=== PATIENT | male | born 1965 | race Caucasian/White ===

== ENCOUNTER 2017-09-22 16:59 | Inpatient (IN) | payer MEDICAID, SELFPAY ==
[2017-09-22] VITALS (19 sets, daily range): BP systolic 74–129; BP diastolic 25–81; PULSE 50–81; RESP 14–20; TEMP 36.4–37; O2SAT 92–99; BMI 21.4
--- NOTE | 2017-09-22 17:06 | XR_ITS ---
XR chest portable HISTORY: ITS.REASON: chest pain ORDERING PHYSICIAN: Shahriar Ponce MD PATIENT AGE: 52 years COMPARISON: 06/24/2017 FINDINGS: The cardiomediastinal silhouette and pulmonary vascularity are within normal limits. There is overlying monitor artifact. There is some increased density in the right infrahilar region which may be related summation density from vascular crowding and ribs versus patchy infiltrate. Upright PA and lateral chest may be of further value. No acute bony abnormalities. IMPRESSION: 1. Possible infiltrate in right infrahilar region. 2. Artifact from overlying monitor device
--- NOTE | 2017-09-22 17:11 | HMH.EDCP ---
ED Disposition Clinical Impression: Acute inferior myocardial infarction Disposition: Admitted As Inpatient Condition on Discharge: Serious Time of Disposition: 17:40 - Critical Care Critical Care Time: Yes Attestation: On , the high probability of a clinically significant, sudden or life threatening deterioration of the following system(s) required my full and direct attention, intervention and personal management. The time I documented below is in addition to time spent performing reported procedures but includes the following listed in this critical care notation. Total Critical Care Time: 35 Vital system(s) involved:: Circulatory Failure My critical care processes included: Assessment & monitoring of V/S, Initial and Re-exams, Data Review/Interpretation, Coordinating Care, Medication Orders and management, Documentation Medical Decision Making - Medical Records Medical records reviewed: Yes: I reviewed the patient's medical records. Vital Signs: 09/22/17 17:00 09/22/17 17:28 Temperature 98.6 F 98.5 F Temperature Source Oral Oral Pulse Rate 79 Pulse Rate [Left Brachial] 78 Respiratory Rate 16 14 Blood Pressure 129/81 Blood Pressure Source Automatic Cuff Blood Pressure Position Sitting 02 Sat by Pulse Oximetry 99 Oxygen Delivery Method Room Air Room Air - Lab Data Lab results reviewed: Yes: I reviewed the patient's lab results. Lab Results 09/22/17 17:10: D-Dimer 385 09/22/17 17:10: B-Natriuretic Peptide 7 09/22/17 17:15: WBC 16.6 H, RBC 4.87, Hgb 15.1, Hct 46.4, MCV 95.2 H, MCH 31.1, MCHC 32.6, RDW 12.0, Plt Count 431 H, MPV 7.2 L, Neut % (Auto) 75.3, Lymph % (Auto) 17.6, [place] % (Auto) 5.8, Eos % (Auto) 1.1, Baso % (Auto) 0.3, Neut # (Auto) 12.5 H, Lymph # (Auto) 2.9, [place] # (Auto) 1.0, Eos # (Auto) 0.2, Baso # (Auto) 0.1, Total Counted 100, Neutrophils % (Manual) 74, Lymphocytes % (Manual) 17, Monocytes % (Manual) 8, Eosinophils % (Manual) 1, Platelet Estimate Slight increase, RBC Morphology Normal 09/22/17 17:15: Sodium 129 L, Potassium 4.3, Chloride 101, Carbon Dioxide 29, Anion Gap 3.3 L, BUN 11, Creatinine 1.02, Estimated Creat Clear 78, Estimated GFR 76, Est GFR ( Amer) 92, Glucose 132 H, Calcium 8.7, Total Bilirubin 0.1 L, AST 14 L, ALT 19, Alkaline Phosphatase 71, Total Creatine Kinase 76, CK-MB (CK-2) 0.7, CK-MB (CK-2) Rel Index 0.9, Troponin I 0.04, Total Protein 7.6, Albumin 4.1, Globulin 3.5 H, Albumin/Globulin Ratio 1.2, Amylase 44 09/22/17 17:15: Lipase 183 09/22/17 17:50: Activated Clotting Time 208 H* 09/22/17 18:05: Activated Clotting Time > 400 H* D Result diagrams: 09/25/17 08:23 09/25/17 08:23 Orders (Tests/Meds): ED MEDICATIONS Discontinued Medications Generic Name Dose Route Start Last Admin Trade Name Freq PRN Reason Stop Dose Admin Hydrocodone Bitart/Acetaminophen 2 tab 09/22/17 18:58 09/22/17 19:00 Bureau 5/325mg Tablet PO 09/22/17 18:59 2 tab ONCE ONE Administration Aspirin 325 mg 09/22/17 17:11 09/22/17 17:18 Aspirin 325mg Tablet PO 09/22/17 17:12 325 mg ONCE ONE Administration Aspirin 81 mg 09/23/17 09:00 09/25/17 09:14 Aspirin 81mg Enteric Coated Tablet PO 10/23/17 08:59 81 mg DAILY NOELLE Administration Atorvastatin Calcium 40 mg 09/22/17 21:00 09/24/17 20:55 Lipitor 40mg Tablet PO 10/22/17 20:59 40 mg HS NOELLE Administration Carvedilol 3.125 mg 09/23/17 21:00 09/25/17 09:14 Coreg 3.125mg Tablet PO 10/23/17 20:59 3.125 mg BID NOELLE Administration Diphenhydramine HCl 50 mg 09/22/17 18:37 09/22/17 18:43 Benadryl 50mg/1ml Vial IV 09/22/17 18:38 50 mg ONCE ONE Administration Fentanyl Citrate 50 mcg 09/22/17 18:37 Fentanyl 100mcg/2ml Vial IV 09/23/17 18:38 Q3MINP PRN Moderate to Severe Pain Fentanyl Citrate 25 mcg 09/22/17 18:37 09/22/17 18:46 Fentanyl 100mcg/2ml Vial IV 09/23/17 18:38 100 mcg Q3MINP PRN Administration Moderate to Severe Pain Flumaze
--- NOTE | 2017-09-22 17:19 | PC.NURSE ---
SPOKE WITH Michael WOOD, RN AND Nemesio INIGUEZ, RN TO NOTIFY THEM OF STEMI ALERT. DR. JAIN SPOKE WITH DR. VELAZCO AND HE IS ON HIS WAY. PURA SALINAS IS IN HOUSE AND SHE WAS NOTIFIED OF STEMI ALERT.
--- NOTE | 2017-09-22 17:24 | PC.NURSE ---
Nemesio INIGUEZ RN AT BEDSIDE.
[2017-09-22 17:25] LABS: Basophils # 0.1 K/mm3 (0-0.2); Basophils % 0.3 % (0.1-2.0); Eosinophils # 0.2 K/mm3 (0.0-0.4); Eosinophils % 1.1 % (0.1-12.0); Hematocrit 46.4 % (42.0-52.0); Hemoglobin 15.1 g/dL (14.1-18.0); Lymphocytes # 2.9 K/mm3 (0.7-4.5); Lymphocytes % 17.6 K/mm3 (10-50); Mean Corpuscular HGB Conc 32.6 g/dL (31.8-35.4); Mean Corpuscular Hemoglobin 31.1 pg (27.0-31.2); Mean Corpuscular Volume 95.2 fl (80-94); Mean Platelet Volume 7.2 fl (7.4-10.4); Monocytes % 5.8 % (1.7-9.3); Neutrophils # 12.5 K/mm3 (1.8-7.8); Neutrophils % 75.3 % (37.0-80.0); Platelet Count 431 K/mm3 (142-424); Red Blood Count 4.87 M/mm3 (4.60-6.20); White Blood Count 16.6 K/mm3 (4.8-10.8)
--- NOTE | 2017-09-22 17:25 | PC.NURSE ---
pt leaving for lab scientist
[2017-09-22 17:41] LABS: Lipase 183 u/L (73-393); MANUAL DIFFERENTIAL MANUAL DIFFERENTIAL (MANUAL DIFF)
[2017-09-22 17:48] LABS: Alanine Aminotransferase 19 U/L (12-78); Albumin Level 4.1 gm/dL (3.4-5.0); Albumin/Globulin Ratio 1.2 (1.1-1.8); Alkaline Phosphatase 71 U/L (46-116); Amylase 44 U/L (25-125); Anion Gap 3.3 mEq/L (5-15); Aspartate Amino Transferase 14 U/L (15-37); Bilirubin,Total 0.1 mg/dL (0.2-1.0); Blood Urea Nitrogen 11 mg/dL (7-18); CKMB Relative Index 0.9 U/L (0-4.0); Calcium 8.7 mg/dL (8.5-10.1); Carbon Dioxide 29 mmol/L (21.0-32.0); Chloride 101 mmol/L (98-107); Creatine Kinase 76 U/L (39-308); Creatine Kinase MB 0.7 mg/ml (0.0-3.6); Creatinine Clearance Estimated 78 mL/min (0-300); Creatinine,Serum 1.02 mg/dL (0.70-1.30); Estimated Glomerular Filt Rate 76 ml/min (>60); GFR (African American) 92 ML/MIN (>60); Globulin 3.5 gm/dl (1.3-3.2); Glucose 132 mg/dL (74-106); Potassium 4.3 mmoL/L (3.5-5.1); Sodium 129 mmol/L (136-145); Total Protein,Serum 7.6 gm/dL (6.4-8.2); Troponin I 0.04 ng/ml (0.00-0.06)
--- NOTE | 2017-09-22 17:48 | PC.NURSE ---
DR. VELAZCO ARRIVED AT BEDSIDE.
[2017-09-22 18:00] LABS: D-Dimer 385 (0-400)
--- NOTE | 2017-09-22 18:31 | IR_ITS ---
CARDIAC CATHETERIZATION DATE OF CATHETERIZATION:09/23/2017 4:52 PM PROCEDURES: 1. Left heart catheterization 2. Left ventriculogram 3. Selective coronary angiogram 4. Drug-eluting stent deployment to the mid dominant right coronary artery 5. Drug-eluting stent deployment to the proximal posterior lateral ventricular branch INDICATION FOR TEST: 1. Acute inferior ST elevation myocardial infarction 2. Coronary artery disease Informed consent was obtained prior to the procedure. COMPLICATIONS: None ESTIMATED BLOOD LOSS: Less than 10 ml. TECHNIQUE: One percent lidocaine used to anesthetize the right anterior aspect of the wrist. The right radial artery was accessed via the Seldinger technique. A 6 [place] sheath was placed in the right radial artery. 2.5 mg of verapamil, 800 mcg of nitroglycerin and 5000 U Heparin were given through the arterial sheath. An [employer] right guide catheter was used intubate the right coronary artery and a choice PT extra-support wire was used to push through the 100% occlusion. A 2 mm x 12 mm balloon was used to predilate the stenosis. Following this a 3 mm x 26 mm resolute [place] stent was deployed at 20 ryan reducing the severe stenosis to 0%. An additional 2.5 x 8 mm resolute [place] stent was placed in the posterior lateral ventricular branch and deployed at 18 ryan. SHAI 0 flow was present at the beginning the procedure with SHAI-3 flow present at the end of the procedure. 800 mcg of intracoronary nitroglycerin was administered. At the end of the procedure the ACT was measured out of range. The sheath was removed good hemostasis was achieved using TR banding patient transferred the postop holding area in stable condition ANGIOGRAPHIC RESULTS: 1. The left main artery normal 2. The left anterior descending artery is normal throughout 3. The circumflex artery is a large nondominant vessel and normal 4. The right coronary artery is a dominant vessel with stents in the mid segment which have 50% concentric in-stent restenosis. The vessel is then occluded distal to the RV marginal branch. The posterior lateral branch has a proximal concentric 90% stenosis 5. The GOODWIN ventriculogram reveals normal ejection fraction estimated at 60% 6. The left ventricular end-diastolic pressure 20 mmHg IMPRESSION: 1. Acute ST elevation myocardial infarction involving the right coronary artery producing an inferior myocardial infarction 2. Successful stenting of the mid dominant right coronary artery 100% occlusion reduced to 0% with 1 drug-eluting stent 3. Severe stenosis in the proximal posterior lateral ventricular branch with successful stenting reducing the 90% stenosis to 0% 4. Normal ejection fraction 5. Mildly elevated LVEDP PLAN: 1. Patient requires dual antiplatelet therapy for one year 2. LDL less than 55. Lipitor 40 mg a day will be started 3. Lisinopril 2.5 mg by mouth twice a day will be started in order to prevent left ventricular remodeling 4. Once patient has better blood pressure I would like to start him on carvedilol initially a 3.125 mg by mouth twice a day with plans to uptitrate as blood pressure and heart rate tolerate 5. Cardiac rehabilitation 6. Avoidance of tobacco products
[2017-09-22 18:43] LABS: CATHL Activated Clotting Time > 400 SEC (74-125)
[2017-09-22 18:43] LABS: CATHL Activated Clotting Time 208 SEC (74-125)
[2017-09-22 18:47] LABS: Eosinophils % 1 % (0-3); Lymphocytes % 17 % (10-50); Monocytes % 8 % (2-9); Neutrophils % 74 % (42-76); RBC Morphology Normal; Total Cells Counted 100
[2017-09-22 18:48] LABS: Platelet Estimate Slight Increase
--- NOTE | 2017-09-22 20:39 | HMH.ACPN2 ---
Internal Medicine - PN: Subj *Date: 09/22/17 *Time: 20:39 Interval history: This 52-year-old white male presented to the emergency room at [facility] with chest pain. He states that after taking a shower he developed chest pain with radiation into the jaw. He has known coronary disease with a history of 2 stents placed when he was in his 30s. The stents were placed by Dr. Crespo in [place]. He was admitted today from the emergency room and taken directly to cardiac catheterization lab. Dr. Jerome Mcclure performed catheterization and placed 2 stents in the right coronary artery. The patient is stable at this time in the intensive care unit. He does complain of some chest discomfort still. As stated he has a history of coronary artery disease and he is a smoker. He has a family history of coronary artery disease. Exam Vital signs and Labs for Last 24 Hours: Temp Pulse Resp BP Pulse Ox 98.5 F 77 16 106/67 92 L 09/22/17 17:28 09/22/17 19:20 09/22/17 19:20 09/22/17 19:20 09/22/17 19:20
--- NOTE | 2017-09-22 20:49 | HMH.HP ---
*Admission Date: 09/22/17 *Chief complaint: Chest pain *History of present illness: This 52-year-old white male presented in the emergency room at [facility] with complaints of chest pain. He had taken a shower and experienced chest pain with radiation to the jaw. He has known coronary artery disease having had 2 stents placed when he was in his 30s. He is a smoker. He has a family history of coronary artery disease. The patient was admitted from the emergency room and taken to the cardiac catheterization lab. Dr. Jerome Mcclure performed cardiac catheterization placing 2 stents in the right coronary artery. Also significant in the patient's history is that he is a chronic pain patient. He has been followed in the pain clinic at [facility] and has received lumbar epidural steroid injections for neck and low back pain. Dates of those injections include September 21, 2016 and December 03, 2016 and February 15, 2017. He also was hospitalized in October 2016 with an abscess of the left upper extremity. This was drained by Dr. Ledesma [facility] History Medical History: Reports:: Anxiety, Atherosclerotic Heart Disease, Chronic Obstructive Pulmonary Disease (COPD), Coronary Artery Disease, Depression, Gastroesophageal Reflux Disease(GERD), MRSA (Left upper extremity October 2016) Denies:: Cancer, Diabetes Mellitus Type 1, Diabetes Mellitus Type 2 Other Medical History: Reports: Arthritis Other Surgeries: Yes: Other (Abscess of the left upper extremity Dr. 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 Not current.) *Family Hx:: Coronary Artery Disease (Father with heart disease) Comment: He has a 38-year-old daughter Review of Systems - Constitutional Comments: Chest pain - Eyes Denies change in vision - ENT Comments: Chronic neck pain. Pain with radiation into the jaw on this presentation. - *Cardiovascular Reports chest pain, Reports excessive sweating, Reports shortness of breath, Reports radiating jaw, neck or arm pain - *Respiratory Reports chest congestion, Reports shortness of breath - *Gastrointestinal Denies abdominal pain - *Genitourinary Denies difficulty urinating - *Musculoskeletal Reports back pain - Integumentary/Breasts Denies wounds - *Neurologic Denies behavioral changes, Denies localized weakness - Psychiatric Reports depression (Past history) - Endocrine Denies increased urination - Hematologic/Lymphatic Denies easy bleeding - Allergic/Immunologic Comments: No known allergies. Meds Home Medications Medication Instructions Recorded Confirmed Type Atenolol [Atenolol 50mg Tab] 50 mg PO DAILY 09/22/17 09/22/17 History Allergies Allergy/AdvReac Type Severity Reaction Status Date / Time No Known Drug Allergies Allergy Unknown -- Verified 09/22/17 17:10 Exam Vital signs and Labs for Last 24 Hours: Temp Pulse Resp BP Pulse Ox 98.5 F 77 16 106/67 92 L 09/22/17 17:28 09/22/17 19:20 09/22/17 19:20 09/22/17 19:20 09/22/17 19:20 - Constitutional Comments: He is lying in bed. He is in no acute distress. He does state that he has some residual chest pain in the center of the chest. - *Routine HEENT Exam Head: Present: normocephalic, atraumatic Eye: Present: PERRL ENT: Present: mucous memb
--- NOTE | 2017-09-22 20:52 | P.HP_ITS ---
*Admission Date: 09/22/17 *Chief complaint: Chest pain *History of present illness: This 52-year-old white male presented in the emergency room at [facility] with complaints of chest pain. He had taken a shower and experienced chest pain with radiation to the jaw. He has known coronary artery disease having had 2 stents placed when he was in his 30s. He is a smoker. He has a family history of coronary artery disease. The patient was admitted from the emergency room and taken to the cardiac catheterization lab. Dr. Jerome Mcclure performed cardiac catheterization placing 2 stents in the right coronary artery. Also significant in the patient's history is that he is a chronic pain patient. He has been followed in the pain clinic at [facility] and has received lumbar epidural steroid injections for neck and low back pain. Dates of those injections include September 21, 2016 and December 03, 2016 and February 15, 2017. He also was hospitalized in October 2016 with an abscess of the left upper extremity. This was drained by Dr. Ledesma [facility] History Medical History: Reports:: Anxiety, Atherosclerotic Heart Disease, Chronic Obstructive Pulmonary Disease (COPD), Coronary Artery Disease, Depression, Gastroesophageal Reflux Disease(GERD), MRSA (Left upper extremity October 2016) Denies:: Cancer, Diabetes Mellitus Type 1, Diabetes Mellitus Type 2 Other Medical History: Reports: Arthritis Other Surgeries: Yes: Other (Abscess of the left upper extremity Dr. 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 Not current.) *Family Hx:: Coronary Artery Disease (Father with heart disease) Comment: He has a 38-year-old daughter Review of Systems - Constitutional Comments: Chest pain - Eyes Denies change in vision - ENT Comments: Chronic neck pain. Pain with radiation into the jaw on this presentation. - *Cardiovascular Reports chest pain, Reports excessive sweating, Reports shortness of breath, Reports radiating jaw, neck or arm pain - *Respiratory Reports chest congestion, Reports shortness of breath - *Gastrointestinal Denies abdominal pain - *Genitourinary Denies difficulty urinating - *Musculoskeletal Reports back pain - Integumentary/Breasts Denies wounds - *Neurologic Denies behavioral changes, Denies localized weakness - Psychiatric Reports depression (Past history) - Endocrine Denies increased urination - Hematologic/Lymphatic Denies easy bleeding - Allergic/Immunologic Comments: No known allergies. Meds Home Medications Medication Instructions Recorded Confirmed Type Atenolol [Atenolol 50mg Tab] 50 mg PO DAILY 09/22/17 09/22/17 History Allergies Allergy/AdvReac Type Severity Reaction Status Date / Time No Known Drug Allergies Allergy Unknown -- Veri
[2017-09-23] VITALS (17 sets, daily range): BP systolic 92–125; BP diastolic 47–90; PULSE 60–84; RESP 14–22; TEMP 36.4–37.2; O2SAT 95–98
[2017-09-23 02:40] LABS: POC Glucose,Bedside 130 mg/dL
--- NOTE | 2017-09-23 05:30 | PC.NURSE ---
PT RESTING IN BED. (R) RADIAL CATH SITE. DRESSING, 2X2 WITH TEGADERM C/D/I. TRACELET WAS REMOVED WITHOUT ANY DIFFICULTIES. NO HEMATOMA NOTED. PT REMAINS NSR WITH PVC'S. HE STATES THAT HE NO LONGER IS HAVING CHEST PAIN. HE HAS C/O SO ANXIETY THIS AM. IT WAS ALSO NOTED THAT PT STATED THAT HE TAKES ATENOLOL 50 MG PT DAILY. MD IS AWARE. NO OTHER COCNERNS NOTED AT THIS TIME. WILL CONTINUE TO MONITOR.
[2017-09-23 06:32] LABS: Basophils % 0.3 % (0.1-2.0); Lymphocytes # 3.2 K/mm3 (0.7-4.5); Monocytes # 0.8 K/mm3 (0.1-1.0)
[2017-09-23 06:37] LABS: Eosinophils # 0.2 K/mm3 (0.0-0.4); Eosinophils % 1.3 % (0.1-12.0); Hematocrit 38.4 % (42.0-52.0); Hemoglobin 12.3 g/dL (14.1-18.0); Lymphocytes % 26.2 K/mm3 (10-50); Mean Corpuscular HGB Conc 32.2 g/dL (31.8-35.4); Mean Corpuscular Hemoglobin 30.3 pg (27.0-31.2); Mean Corpuscular Volume 94.1 fl (80-94); Mean Platelet Volume 6.7 fl (7.4-10.4); Monocytes % 6.1 % (1.7-9.3); Neutrophils # 8.2 K/mm3 (1.8-7.8); Platelet Count 337 K/mm3 (142-424); Red Blood Count 4.08 M/mm3 (4.60-6.20); White Blood Count 12.3 K/mm3 (4.8-10.8)
[2017-09-23 06:46] LABS: Alanine Aminotransferase 24 U/L (12-78); Albumin/Globulin Ratio 1.1 (1.1-1.8); Alkaline Phosphatase 56 U/L (46-116); Anion Gap 10.8 mEq/L (5-15); Aspartate Amino Transferase 96 U/L (15-37); Bilirubin,Total 0.3 mg/dL (0.2-1.0); Blood Urea Nitrogen 7 mg/dL (7-18); Calcium 8.2 mg/dL (8.5-10.1); Carbon Dioxide 27 mmol/L (21.0-32.0); Chloride 107 mmol/L (98-107); Creatinine Clearance Estimated 89 mL/min (0-300); Creatinine,Serum 0.89 mg/dL (0.70-1.30); Estimated Glomerular Filt Rate 89 ml/min (>60); GFR (African American) 108 ML/MIN (>60); Globulin 2.7 gm/dl (1.3-3.2); Glucose 93 mg/dL (74-106); Potassium 3.8 mmoL/L (3.5-5.1); Sodium 141 mmol/L (136-145); Total Protein,Serum 5.7 gm/dL (6.4-8.2)
[2017-09-23 07:30] LABS: Creatine Kinase 901 U/L (39-308)
--- NOTE | 2017-09-23 07:43 | P.CONPHA_ITS ---
[facility] Pharm[facility] VTE Monitoring - Patient Demographics Admission date: 09/22/17 Report Date: 09/23/17 Time: 07:43 Allergies/Adverse Reactions: Patient Allergies No Known Drug Allergies Allergy (Unknown, Verified 09/22/17 17:10) -- Height: 1.75 m Weight: 65.317 kg Patient Problems: Current Active Problems Acute inferior myocardial infarction (Acute) Chest pain due to myocardial ischemia (Acute) Coronary artery disease (Acute) Chronic back pain (Acute) Tobacco abuse (Acute) History of ETOH abuse (Acute) - VTE Risk Labs: VTE Related Lab Results Hgb 12.3 g/dL (14.1-18.0) L D 09/23/17 06:00 Hct 38.4 % (42.0-52.0) L 09/23/17 06:00 Plt Count 337 K/mm3 (142-424) 09/23/17 06:00 BUN 7 mg/dL (7-18) D 09/23/17 06:00 Creatinine 0.89 mg/dL (0.70-1.30) 09/23/17 06:00 Estimated Creat Clear 89 mL/min (0-300) 09/23/17 06:00 Was VTE Risk Assessment Performed: Yes VTE Score: 5 VTE Risk Level: Low Risk Clinical Trial Participant: No - Prophylaxis VTE Prophylaxis Ordered?: Yes Types of VTE Prophylaxis: TEDS Knee High
[2017-09-23 07:46] LABS: CKMB Relative Index 13.5 U/L (0-4.0)
[2017-09-23 07:47] LABS: Creatine Kinase MB 121.3 mg/ml (0.0-3.6); Troponin I 40.36 ng/ml (0.00-0.06)
--- NOTE | 2017-09-23 08:32 | HMH.ACPN2 ---
Internal Medicine - PN: Subj *Date: 09/23/17 *Time: 08:32 Interval history: Pt states he feels a little better today. He denies any CP at this time. He does have a COOK and is asking for ASA. Cardiology has not seen patient yet today. Exam Vital signs and Labs for Last 24 Hours: Temp Pulse Resp BP Pulse Ox 97.9 F 70 14 106/78 96 09/23/17 04:00 09/23/17 08:20 09/23/17 05:00 09/23/17 05:00 09/23/17 08:00 Laboratory Results - last 24 hr 09/23/17 02:33: POC Glucose 130 09/23/17 06:00: WBC 12.3 H D, RBC 4.08 L, Hgb 12.3 L D, Hct 38.4 L, MCV 94.1 H, MCH 30.3, MCHC 32.2, RDW 12.0, Plt Count 337, MPV 6.7 L, Neut % (Auto) 66.0, Lymph % (Auto) 26.2, [place] % (Auto) 6.1, Eos % (Auto) 1.3, Baso % (Auto) 0.3, Neut # (Auto) 8.2 H, Lymph # (Auto) 3.2, [place] # (Auto) 0.8, Eos # (Auto) 0.2, Baso # (Auto) 0.0 09/23/17 06:00: Sodium 141, Potassium 3.8, Chloride 107, Carbon Dioxide 27, Anion Gap 10.8, BUN 7 D, Creatinine 0.89, Estimated Creat Clear 89, Estimated GFR 89, Est GFR ( Amer) 108, Glucose 93 D, Calcium 8.2 L, Total Bilirubin 0.3, AST 96 H D, ALT 24 D, Alkaline Phosphatase 56, Total Protein 5.7 L, Albumin 3.0 L D, Globulin 2.7, Albumin/Globulin Ratio 1.1 09/23/17 06:00: Total Creatine Kinase 901 H* D, CK-MB (CK-2) 121.3 H*, CK-MB (CK-2) Rel Index 13.5 H*, Troponin I 40.36 H I & O for Last 24 hours: Intake & Output 09/20/17 09/21/17 09/22/17 09/23/17 11:59 11:59 11:59 11:59 Output Total 600 / 600 Balance -600 / -600 Weight 144 lb - Constitutional no acute distress - *Routine Respiratory Exam Present: CTA bilaterally - *Routine Cardiovascular Exam Present: RRR - *Routine Abdominal Exam Present: soft, normoactive bowel sounds. Absent: tenderness - *Routine Extremities Exam Absent: edema Assessment and Plan (1) Acute inferior myocardial infarction Current visit: Yes Status: Acute Category: Medical Code(s): I21.19 - ST elevation (STEMI) myocardial infarction involving other coronary artery of inferior wall (2) Chest pain due to myocardial ischemia Current visit: Yes Status: Acute Category: Medical Code(s): I20.9 - Angina pectoris, unspecified (3) Chronic back pain Current visit: Yes Status: Acute Category: Medical Code(s): M54.9 - Dorsalgia, unspecified; G89.29 - Other chronic pain (4) Coronary artery disease Current visit: Yes Status: Acute Category: Medical Code(s): I25.10 - Atherosclerotic heart disease of [place] coronary artery without angina pectoris (5) History of ETOH abuse Current visit: Yes Status: Acute Category: Medical Code(s): Z87.898 - Personal history of other specified conditions (6) Tobacco abuse Current visit: Yes Status: Acute Category: Medical Code(s): Z72.0 - Tobacco use - Assessment and plan all Dx Assessment and Plan for all problems:: Cardiology to follow, patient will get an ASA for his COOK today.
--- NOTE | 2017-09-23 11:19 | PC.NURSE ---
Pt was noted to have v-tach, strip printed, MD Rios notified and reviewed at 0945. Will continue to monitor
--- NOTE | 2017-09-23 20:26 | PC.NURSE ---
dr arzate called rn and stated that pt needed to be on beta ravi. ordered coreg 3.125 bid
[2017-09-24] VITALS (14 sets, daily range): BP systolic 96–137; BP diastolic 64–86; PULSE 58–100; RESP 14–22; TEMP 36.1–37.1; O2SAT 94–98
--- NOTE | 2017-09-24 00:42 | PC.NURSE ---
LATE ENTRY- WHEN ATTEMPTNG TO UNDO PT'S SRNA CHECK FOR TIME @ 00:27. HIT WRONG BUTTON. REASON FOR UNDOING WAS SUPPOSE TO READ WRONG TIME . HIT BENITATON BY ACCIDENT.
--- NOTE | 2017-09-24 05:55 | PC.NURSE ---
NO ACUTE CHANGES NOTED. PT HAS RESTED BETTER TONIGHT. HE HAS BEEN LESS ANXIOUS. (R) RADIAL CATH SITE , DRESSING C/D/I. NO HEMATOMA NOTED. PT HAS AMBULATED IN ROOM WITHOUT DIFFICULTY. VSS. PT REMAINS NSR ON TELEMETRY WITH OCCASIONAL PVC'S. SOME EPISODES OF BRADYCARDIA. NO OTHER COCERNS NOTED AT THIS TIME. WILL CONTINUE TO MONITOR.
--- NOTE | 2017-09-24 06:09 | PC.NURSE ---
pt refused a bath & bed change. nurse notified
--- NOTE | 2017-09-24 07:54 | PC.NURSE ---
REPORT HANDOFF TO Harini PULIDO
[2017-09-24 08:12] LABS: Cholesterol 198 mg/dL (140-200); HDL Cholesterol 33 mg/dL (27-67); LDL Cholesterol 146 mg/dL (0-130); Triglycerides 95 mg/dL (30-200); VLDL Cholesterol 19 mg/dL (0-40)
--- NOTE | 2017-09-24 09:00 | P.PN_ITS ---
Internal Medicine - PN: Subj *Date: 09/24/17 *Time: 08:57 Interval history: Patient states he is feeling better this morning. He denies any chest pain. He slept well and ate well this morning. He states he was given lorazepam last night for anxiety and he would like another one this morning. Exam Vital signs and Labs for Last 24 Hours: Temp Pulse Resp BP Pulse Ox 98.7 F 63 16 126/76 96 09/24/17 04:00 09/24/17 06:00 09/24/17 06:00 09/24/17 06:00 09/24/17 06:00 Laboratory Results - last 24 hr 09/24/17 07:00: Triglycerides 95, Cholesterol 198, LDL Cholesterol 146 H, VLDL Cholesterol 19, HDL Cholesterol 33, Cholesterol/HDL Ratio 6.0 H I & O for Last 24 hours: Intake & Output 09/21/17 09/22/17 09/23/17 09/24/17 11:59 11:59 11:59 11:59 Intake Total 240 / 240 240 / 240 Output Total 600 / 600 1850 / 1850 Balance -360 / -360 -1610 / -1610 Weight 144 lb 144 lb - Constitutional no acute distress - *Routine Respiratory Exam Present: CTA bilaterally - *Routine Cardiovascular Exam Present: RRR - *Routine Abdominal Exam Present: soft, normoactive bowel sounds. Absent: tenderness - *Routine Extremities Exam Absent: edema Assessment and Plan (1) Acute inferior myocardial infarction Current visit: Yes Status: Acute Category: Medical Code(s): I21.19 - ST elevation (STEMI) myocardial infarction involving other coronary artery of inferior wall (2) Chest pain due to myocardial ischemia Current visit: Yes Status: Acute Category: Medical Code(s): I20.9 - Angina pectoris, unspecified (3) Chronic back pain Current visit: Yes Status: Acute Category: Medical Code(s): M54.9 - Dorsalgia, unspecified; G89.29 - Other chronic pain (4) Coronary artery disease Current visit: Yes Status: Acute Category: Medical Code(s): I25.10 - Atherosclerotic heart disease of [place] coronary artery without angina pectoris (5) History of ETOH abuse Current visit: Yes Status: Acute Category: Medical Code(s): Z87.898 - Personal history of other specified conditions (6) Tobacco abuse Current visit: Yes Status: Acute Category: Medical Code(s): Z72.0 - Tobacco use - Assessment and plan all Dx Assessment and Plan for all problems:: Will discuss Lorazepam with Dr. rojas as patient has apparently had problems with alcohol and narcotics in the past under the care of Dr. Irvin. Possible discharge home today.
[2017-09-24 09:27] LABS: Chol/HDL Ratio 6.2 (1-3.5); Cholesterol 203 mg/dL (140-200); HDL Cholesterol 33 mg/dL (27-67); LDL Cholesterol 150 mg/dL (0-130); Triglycerides 100 mg/dL (30-200); VLDL Cholesterol 20 mg/dL (0-40)
--- NOTE | 2017-09-24 13:34 | PC.NURSE ---
OKAYED PATIENT TO BE MOVED OUT OF STEPDOWN AND MADE AN ACUTE FLOOR PATIENT
--- NOTE | 2017-09-24 15:10 | PC.NURSE ---
rECEIVED REPORT FROM CHANCE. ASSUMED CARE OF PT @ 2612
--- NOTE | 2017-09-24 15:34 | PC.NURSE ---
A&O x3. Lungs clear, bowel sounds normal. Lower abd is slightly tender to palpation. Treated x1 w/PRN pain meds for abd pain. Pain was rated a 7/10 with pain resolving after receiving pain meds. She has remained afebrile thus far. She has been up to the chair the and has ambulated independently around her room. Tolerating full liquid diet with no complaints. Family has been at bedside. Will continue to monitor.
--- NOTE | 2017-09-24 18:11 | PC.NURSE ---
Pt ambulates independently (occasionally off the unit) with no distress noted. Right radial site is free of hematoma w/no s/s of infection. He denies chest pain. No complaints verbalized. Will continue to monitor.
--- NOTE | 2017-09-24 18:58 | PC.NURSE ---
report to be given to asia james rn
--- NOTE | 2017-09-24 19:15 | PC.NURSE ---
PT FULL CODE. REPORT RECEIVED FROM ANGELO
[2017-09-25] VITALS: PULSE 70
[2017-09-25 03:38] VITALS: BP 96/69; PULSE 80; RESP 18; TEMP 36.5; O2SAT 97
[2017-09-25 04:00] VITALS: PULSE 90
--- NOTE | 2017-09-25 04:34 | PC.NURSE ---
PT ALERT AND ORIENTED. SLEPT SEVERAL HOURS STRAIGHT, BUT WAS WALKING THE HALLS PRIOR TO SLEEPING AND UP WALKING HALLS AGAIN AT THIS TIME. STATES FEELS LIKE HAS CONGESTION IN HIS CHEST, NO COUGH. RESPIRATIONS EVEN AND UNLABORED, BREATH SOUNDS CLEAR THROUGHOUT. VSS. IV SECURE AND PATENT, SL. PT REFUSES TEDS. NSR ON PROGRAM MANAGEMENT ANALYST. NO CHEST PAIN OR SOA REPORTED. PT STATES THAT HE THINKS HE IS GOING HOME TODAY. PT STABLE. WILL CONTINUE TO MONITOR. REPORT TO BE GIVEN TO ONCOMING NURSE.
--- NOTE | 2017-09-25 07:14 | PC.NURSE ---
REPORT GIVEN TO Lg BRAGA W/C
[2017-09-25 08:00] VITALS: PULSE 80; RESP 20; O2SAT 96
[2017-09-25 08:09] VITALS: BP 103/69; PULSE 80; RESP 20; TEMP 36.1; O2SAT 96
--- NOTE | 2017-09-25 08:14 | HMH.ACPN2 ---
Internal Medicine - PN: Subj *Date: 09/25/17 *Time: 08:14 Interval history: Mr. De Oliveira is ready for discharge. He has been up walking the halls. Blood work this morning is pending. He will be discharged on Brilinta and aspirin. He will also be discharged on Cefdinir for his pulmonary infection. He will see Dr. Mcclure in follow-up and his preferred primary care provider. Exam Vital signs and Labs for Last 24 Hours: Temp Pulse Resp BP Pulse Ox 97.0 F L 80 20 103/69 96 09/25/17 08:09 09/25/17 08:09 09/25/17 08:09 09/25/17 08:09 09/25/17 08:09 Laboratory Results - last 24 hr 09/24/17 07:00: Triglycerides 100, Cholesterol 203 H, LDL Cholesterol 150 H, VLDL Cholesterol 20, HDL Cholesterol 33, Cholesterol/HDL Ratio 6.2 H 09/24/17 07:00: Triglycerides 95, Cholesterol 198, LDL Cholesterol 146 H, VLDL Cholesterol 19, HDL Cholesterol 33, Cholesterol/HDL Ratio 6.0 H I & O for Last 24 hours: Intake & Output 09/22/17 09/23/17 09/24/17 09/25/17 11:59 11:59 11:59 11:59 Intake Total 240 / 240 240 / 240 2230 / 2230 Output Total 600 / 600 1850 / 1850 0 / 0 Balance -360 / -360 -1610 / -1610 2230 / 2230 Weight 144 lb 144 lb - Constitutional no acute distress Comments: Anxious - *Routine HEENT Exam Eye: Present: PERRL ENT: Present: mucous membranes moist - *Routine Respiratory Exam Comments: Moving air better. Clear. - *Routine Cardiovascular Exam Present: RRR - *Routine Abdominal Exam Present: soft. Absent: tenderness - *Routine Extremities Exam Absent: edema - Routine Psychiatric Exam Comments: Anxious and walking the halls. Assessment and Plan (1) Chest pain due to myocardial ischemia Current visit: Yes Status: Acute Category: Medical Code(s): I20.9 - Angina pectoris, unspecified (2) Coronary artery disease Current visit: Yes Status: Acute Category: Medical Code(s): I25.10 - Atherosclerotic heart disease of [place] coronary artery without angina pectoris (3) Chronic back pain Current visit: Yes Status: Acute Category: Medical Code(s): M54.9 - Dorsalgia, unspecified; G89.29 - Other chronic pain (4) Tobacco abuse Current visit: Yes Status: Acute Category: Medical Code(s): Z72.0 - Tobacco use (5) History of ETOH abuse Current visit: Yes Status: Acute Category: Medical Code(s): Z87.898 - Personal history of other specified conditions (6) Pulmonary infection Current visit: Yes Status: Acute Category: Medical Code(s): J18.9 - Pneumonia, unspecified organism (7) Stented coronary artery Current visit: Yes Status: Acute Category: Surgical Code(s): Z95.5 - Presence of coronary angioplasty implant and graft - Assessment and plan all Dx Assessment and Plan for all problems:: We will discharge today.
[2017-09-25 08:34] LABS: Basophils % 0.2 % (0.1-2.0); Eosinophils # 0.2 K/mm3 (0.0-0.4); Eosinophils % 1.4 % (0.1-12.0); Hemoglobin 14.5 g/dL (14.1-18.0); Lymphocytes % 15.3 K/mm3 (10-50); Mean Corpuscular HGB Conc 32.9 g/dL (31.8-35.4); Mean Corpuscular Hemoglobin 30.8 pg (27.0-31.2); Mean Corpuscular Volume 93.6 fl (80-94); Mean Platelet Volume 6.7 fl (7.4-10.4); Monocytes # 0.8 K/mm3 (0.1-1.0); Monocytes % 6.3 % (1.7-9.3); Neutrophils # 9.8 K/mm3 (1.8-7.8); Neutrophils % 76.7 % (37.0-80.0); Platelet Count 394 K/mm3 (142-424); Red Cell Distribution Width 11.9 % (11.5-17.5); White Blood Count 12.7 K/mm3 (4.8-10.8)
[2017-09-25 08:40] LABS: Anion Gap 12.1 mEq/L (5-15); Blood Urea Nitrogen 6 mg/dL (7-18); Carbon Dioxide 28 mmol/L (21.0-32.0); Chloride 102 mmol/L (98-107); Creatinine Clearance Estimated 75 mL/min (0-300); Creatinine,Serum 1.05 mg/dL (0.70-1.30); Estimated Glomerular Filt Rate 74 ml/min (>60); GFR (African American) 89 ML/MIN (>60); Glucose 103 mg/dL (74-106); Potassium 4.1 mmoL/L (3.5-5.1); Sodium 138 mmol/L (136-145)
--- NOTE | 2017-09-27 17:27 | HMH.DCSUM ---
General - General Admission date: 09/22/17 Discharge date: 09/25/17 HPI HPI: This 52-year-old white male presented in the emergency room at [facility] with complaints of chest pain. He had taken a shower and experienced chest pain with radiation to the jaw. He has known coronary artery disease having had 2 stents placed when he was in his 30s. He is a smoker. He has a family history of coronary artery disease. The patient was admitted from the emergency room and taken to the cardiac catheterization lab. Dr. Jerome Mcclure performed cardiac catheterization placing 2 stents in the right coronary artery. Also significant in the patient's history is that he is a chronic pain patient. He has been followed in the pain clinic at [facility] and has received lumbar epidural steroid injections for neck and low back pain. Dates of those injections include September 21, 2016 and December 03, 2016 and February 15, 2017. He also was hospitalized in October 2016 with an abscess of the left upper extremity. This was drained by Dr. Ledesma Objective Vital signs: Temp Pulse Resp BP Pulse Ox 97.0 F L 80 20 103/69 96 09/25/17 08:09 09/25/17 08:09 09/25/17 08:09 09/25/17 08:09 09/25/17 08:09 Narrative: - Constitutional Comments: He is lying in bed. He is in no acute distress. He does state that he has some residual chest pain in the center of the chest. - *Routine HEENT Exam Head: Present: normocephalic, atraumatic Eye: Present: PERRL ENT: Present: mucous membranes moist. Absent: dentition normal - *Routine Neck Exam Absent: carotid bruit - Routine Chest/Breast/Axilla Exam Chest wall: Present: tenderness (Normal configuration) - *Routine Respiratory Exam Present: decreased breath sounds, rales (Bibasilar) - *Routine Cardiovascular Exam Present: RRR, Normal S1, Normal S2. Absent: murmur - *Routine Abdominal Exam Present: soft. Absent: tenderness Comments: Hyper active bowel sounds - *Routine Extremities Exam Absent: edema - *Routine Skin Exam Present: intact - *Routine Neurological Exam Present: moving all extremities. Absent: sensory deficit, motor deficit Hospital Course Hospital Course: The patient tolerated the procedure well. His complaints were mainly of feeling nervous. He had some lorazepam and it helped him. This was scheduled. His white count was elevated and a patchy infiltrate was seen on his chest x-ray. He was started on Rocephin IV. By 09/25/17, Mr. De Oliveira was ready for discharge. He had been up walking the halls. He was discharged on Brilinta and aspirin. He was also discharged on Cefdinir for his pulmonary infection. He will see Dr. Mcclure in follow-up and his preferred primary care provider. DS: Diagnosis - Discharge Diagnosis (1) Acute inferior myocardial infarction Status: Acute (2) Chest pain due to myocardial ischemia Status: Acute (3) Chronic back pain Status: Acute (4) Coronary artery disease Status: Acute (5) History of ETOH abuse Status: Acute (6) Tobacco abuse Status: Acute (7) Pulmonary infection Status: Acute (8) Stented coronary artery Status: Acute Meds Home Medications Medication Instructions Recorded Confirmed Type Fluoxetine HCl [Prozac 20mg 20 mg PO DAILY 09/23/17 09/23/17 History Capsule] Loratadine [Claritin 10mg Tablet] 10 mg PO DAILY 09/23/17 09/23/17 History Allergies Allergy/AdvReac Type Severity Reaction Status Date / Time No Known Drug Allergies Allergy Unknown -- Verified 09/22/17 17:10 Discharge Plan - Patient Discharge Instructions ACTIVITY: Limited activity DIET: low fat, low cholesterol Additional Instructions: To arrange follow-up with Dr. Mcclure and with Dr. Rios or other primary care provider. Patient Instructions: DI for Heart Attack, DI for Coronary Stenting - Follow up Plan Follow up with: Jerome Mcclure
--- NOTE | 2017-09-27 17:30 | P.DS_ITS ---
General - General Admission date: 09/22/17 Discharge date: 09/25/17 HPI HPI: This 52-year-old white male presented in the emergency room at [facility] with complaints of chest pain. He had taken a shower and experienced chest pain with radiation to the jaw. He has known coronary artery disease having had 2 stents placed when he was in his 30s. He is a smoker. He has a family history of coronary artery disease. The patient was admitted from the emergency room and taken to the cardiac catheterization lab. Dr. Jerome Mcclure performed cardiac catheterization placing 2 stents in the right coronary artery. Also significant in the patient's history is that he is a chronic pain patient. He has been followed in the pain clinic at [facility] and has received lumbar epidural steroid injections for neck and low back pain. Dates of those injections include September 21, 2016 and December 03, 2016 and February 15, 2017. He also was hospitalized in October 2016 with an abscess of the left upper extremity. This was drained by Dr. Ledesma Objective Vital signs: Temp Pulse Resp BP Pulse Ox 97.0 F L 80 20 103/69 96 09/25/17 08:09 09/25/17 08:09 09/25/17 08:09 09/25/17 08:09 09/25/17 08:09 Narrative: - Constitutional Comments: He is lying in bed. He is in no acute distress. He does state that he has some residual chest pain in the center of the chest. - *Routine HEENT Exam Head: Present: normocephalic, atraumatic Eye: Present: PERRL ENT: Present: mucous membranes moist. Absent: dentition normal - *Routine Neck Exam Absent: carotid bruit - Routine Chest/Breast/Axilla Exam Chest wall: Present: tenderness (Normal configuration) - *Routine Respiratory Exam Present: decreased breath sounds, rales (Bibasilar) - *Routine Cardiovascular Exam Present: RRR, Normal S1, Normal S2. Absent: murmur - *Routine Abdominal Exam Present: soft. Absent: tenderness Comments: Hyper active bowel sounds - *Routine Extremities Exam Absent: edema - *Routine Skin Exam Present: intact - *Routine Neurological Exam Present: moving all extremities. Absent: sensory deficit, motor deficit Hospital Course Hospital Course: The patient tolerated the procedure well. His complaints were mainly of feeling nervous. He had some lorazepam and it helped him. This was scheduled. His white count was elevated and a patchy infiltrate was seen on his chest x- ray. He was started on Rocephin IV. By 09/25/17, Mr. De Oliveira was ready for discharge. He had been up walking the halls. He was discharged on Brilinta and aspirin. He was also discharged on Cefdinir for his pulmonary infection. He will see Dr. Mcclure in follow-up and his preferred primary care provider. DS: Diagnosis - Discharge Diagnosis (1) Acute inferior myocardial infarction Status: Acute (2) Chest pain due to myocardial ischemia Status: Acute (3) Chronic back pain Status: Acute (4) Coronary artery disease Status: Acute (5) History of ETOH abuse Status: Acute (6) Tobacco abuse Status: Acute (7) Pulmonary infection Status: Acute (8) Stented coronary artery Status: Acute Meds Home Medications Medication Instructions Recorded Confirmed Type Fluoxetine HCl [Prozac 20mg 20 mg PO DAILY 09/23/17 09/23/17 History Capsule] Loratadine [Claritin 10mg Tablet]
[2017-09-28 17:24] VITALS: BMI 23.4
[2017-09-28 17:26] VITALS: BP 91/61; PULSE 89; PULSE 92; RESP 20; TEMP 37.2; O2SAT 96; BMI 23.1
== END 2017-09-25 10:35 | disposition home or self-care (01) | DRG 247 ==
LOC: ER 17:15 → SDC 17:31 → ICU 18:12 → 2ND 09-24 14:27
PROVIDERS: Admitting Provider Family Medicine; Emergency Provider Emergency Medicine; Family Provider Internal Medicine Adolescent Medicine; Referring Provider Internal Medicine; Visit Provider Family Medicine
DX: I21.19 ST elevation (STEMI) myocardial infarction involving other coronary artery of inferior wall (principal); I25.119 Atherosclerotic heart disease of native coronary artery with unspecified angina pectoris; Z72.0 Tobacco use; J44.9 Chronic obstructive pulmonary disease, unspecified
CPT/HCPCS: 36415; 71045; 80048; 80053; 80061; 82150; 82550; 82553; 82962; 83690; 83880; 84484; 85007; 85025; 85347; 85378; 90686; 92928; 92929; 93005; 93458; 96374; 96375; 99152; 99153; 99283; C1725; C1769; C1876; C9600; C9601; J1644; J2405; Q9967

== ENCOUNTER 2017-09-28 17:39 | Emergency (ER) | payer MEDICAID, SELFPAY ==
[2017-09-28 17:41] VITALS: BP 96/61; PULSE 82; RESP 18; TEMP 37.2; O2SAT 96; BMI 23.3
--- NOTE | 2017-09-28 17:49 | XR_ITS ---
XR chest 2V HISTORY: ITS.REASON: COUGH ORDERING PHYSICIAN: Michael Pack MD PATIENT AGE: 52 years COMPARISON: 09/22/2017 FINDINGS: The cardiomediastinal silhouette and pulmonary vascularity are within normal limits. The lungs are clear without infiltrates, suspicious nodules, or pleural effusions. There is slight increased density right paratracheal region at the T4 level probably due to overlying vasculature. Patient is slightly rotated. Follow-up chest x-ray may confirm. No acute bony abnormalities. IMPRESSION: 1. No acute finding. 2. Slight increased density right paratracheal region possibly related overlying vasculature and may be confirmed with follow-up
[2017-09-28 18:30] LABS: Basophils % 0.4 % (0.1-2.0); Eosinophils # 0.1 K/mm3 (0.0-0.4); Eosinophils % 1.6 % (0.1-12.0); Hematocrit 41.3 % (42.0-52.0); Hemoglobin 13.6 g/dL (14.1-18.0); Lymphocytes # 2.1 K/mm3 (0.7-4.5); Mean Corpuscular HGB Conc 32.8 g/dL (31.8-35.4); Mean Corpuscular Hemoglobin 30.3 pg (27.0-31.2); Mean Corpuscular Volume 92.4 fl (80-94); Mean Platelet Volume 7.1 fl (7.4-10.4); Monocytes # 0.5 K/mm3 (0.1-1.0); Monocytes % 6.8 % (1.7-9.3); Neutrophils # 4.2 K/mm3 (1.8-7.8); Neutrophils % 61.3 % (37.0-80.0); Platelet Count 332 K/mm3 (142-424); Red Blood Count 4.47 M/mm3 (4.60-6.20); White Blood Count 6.9 K/mm3 (4.8-10.8)
[2017-09-28 18:37] LABS: Anion Gap 17.2 mEq/L (5-15); Blood Urea Nitrogen 13 mg/dL (7-18); Carbon Dioxide 23 mmol/L (21.0-32.0); Chloride 100 mmol/L (98-107); Creatinine Clearance Estimated 61 mL/min (0-300); Creatinine,Serum 1.31 mg/dL (0.70-1.30); Estimated Glomerular Filt Rate 57 ml/min (>60); GFR (African American) 69 ML/MIN (>60); Glucose 115 mg/dL (74-106); Sodium 137 mmol/L (136-145); Troponin I 0.49 ng/ml (0.00-0.06)
[2017-09-28 18:39] LABS: Potassium 3.2 mmoL/L (3.5-5.1)
[2017-09-28 18:44] LABS: Lactic Acid 2.2 mmol/L (0.4-2.0)
--- NOTE | 2017-09-28 20:25 | HMH.EDCP ---
ED Disposition Clinical Impression: Bronchitis, Renal insufficiency Coronary artery disease Qualifiers: Coronary Disease-Associated Artery/Lesion type: unspecified vessel or lesion type [place] vs. transplanted heart: [place] heart Associated angina: with unspecified angina Qualified Code(s): I25.119 - Atherosclerotic heart disease of [place] coronary artery with unspecified angina pectoris Disposition: Home, Self-Care Condition on Discharge: Good Instructions: DI for Acute Bronchitis Additional Instructions: fluids and see pcp and card for follow up - Critical Care Critical Care Time: No Attestation: On 09/28/17, the high probability of a clinically significant, sudden or life threatening deterioration of the following system(s) required my full and direct attention, intervention and personal management. The time I documented below is in addition to time spent performing reported procedures but includes the following listed in this critical care notation. Medical Decision Making - Medical Records Medical records reviewed: Yes: I reviewed the patient's medical records. Vital Signs: 09/28/17 17:41 09/28/17 20:35 09/28/17 21:17 Temperature 98.9 F Temperature Source Oral Pulse Rate [Right] 82 91 H 87 Respiratory Rate 18 18 18 Blood Pressure [Right Arm] 96/61 121/57 117/66 Blood Pressure Mean [Right Arm] 72 78 83 Blood Pressure Source [Right Arm] Automatic Cuff Automatic Cuff Automatic Cuff Blood Pressure Position [Right Arm] Supine Supine Supine 02 Sat by Pulse Oximetry 96 93 L 95 Oxygen Delivery Method Nasal Cannula Room Air Room Air Oxygen Flow Rate (LPM) 2 - Lab Data Lab results reviewed: Yes: I reviewed the patient's lab results. Lab Results 09/28/17 17:30: WBC 6.9, RBC 4.47 L, Hgb 13.6 L, Hct 41.3 L, MCV 92.4, MCH 30.3, MCHC 32.8, RDW 12.0, Plt Count 332, MPV 7.1 L, Neut % (Auto) 61.3, Lymph % (Auto) 30.0, [place] % (Auto) 6.8, Eos % (Auto) 1.6, Baso % (Auto) 0.4, Neut # (Auto) 4.2, Lymph # (Auto) 2.1, [place] # (Auto) 0.5, Eos # (Auto) 0.1, Baso # (Auto) 0.0 09/28/17 17:30: Sodium 137, Potassium 3.2 L, Chloride 100, Carbon Dioxide 23, Anion Gap 17.2 H, BUN 13, Creatinine 1.31 H, Estimated Creat Clear 61, Estimated GFR 57 L, Est GFR ( Amer) 69, Glucose 115 H, Troponin I 0.49 H 09/28/17 17:30: Lactic Acid 2.2 H Result diagrams: 09/28/17 17:30 09/28/17 17:30 Orders (Tests/Meds): ED MEDICATIONS Discontinued Medications Generic Name Dose Route Start Last Admin Trade Name Freq PRN Reason Stop Dose Admin Aspirin 324 mg 09/28/17 17:49 09/28/17 18:13 Aspirin 81mg Chewable Tablet PO 09/28/17 17:50 324 mg ONCE ONE Administration Sodium Chloride 1,000 mls @ 999 mls/hr 09/28/17 18:15 09/28/17 18:20 Sod Chloride 0.9% 1000ml Bag IV 09/28/17 19:15 999 mls/hr .Q1H1M NOELLE Administration Sodium Chloride 1,000 mls @ 999 mls/hr 09/28/17 20:30 09/28/17 20:32 Sod Chloride 0.9% 1000ml Bag IV 09/28/17 21:30 999 mls/hr .Q1H1M NOELLE Administration ORDERS Category Date Time Status XR chest 2V Stat Exams 09/28/17 17:49 Taken Blood Culture Stat Micro 09/28/17 17:30 Received ECG Request by /Dre Stat Y 09/28/17 17:49 Ordered - Radiology Data #1 Image(s): Chest Image Reviewed: Yes I reviewed the patient's radiology image Preliminary Findings: Normal/NAD - ECG Data Tracing #1 I reviewed this ECG and interpreted as documented below: Ischemic changes: non-specific ST-T wave changes - Physician Consults Physician Consulted: huey Reason -: Pt condition - Amor Inquiry Pt receiving controlled substance: No Chest Pain HPI - General Chief Complaint: Chest Pain Stated Complaint: CHEST PAIN Time Seen by Provider: 09/28/17 20:25 Mode of Arrival: Ambulatory Source of Information: Patient, Relative, Medical Record Limitations: No Limitations Description of Symptoms (Recalled from ER Triage Doc. by RN): CHEST PAIN - History of Present
--- NOTE | 2017-09-28 20:28 | ED_ITS ---
ED Disposition Clinical Impression: Bronchitis, Renal insufficiency Coronary artery disease Qualifiers: Coronary Disease-Associated Artery/Lesion type: unspecified vessel or lesion type [place] vs. transplanted heart: [place] heart Associated angina: with unspecified angina Qualified Code(s): I25.119 - Atherosclerotic heart disease of [place] coronary artery with unspecified angina pectoris Disposition: Home, Self-Care Condition on Discharge: Good Instructions: DI for Acute Bronchitis Additional Instructions: fluids and see pcp and card for follow up - Critical Care Critical Care Time: No Attestation: On 09/28/17, the high probability of a clinically significant, sudden or life threatening deterioration of the following system(s) required my full and direct attention, intervention and personal management. The time I documented below is in addition to time spent performing reported procedures but includes the following listed in this critical care notation. Medical Decision Making - Medical Records Medical records reviewed: Yes: I reviewed the patient's medical records. Vital Signs: 09/28/17 17:41 09/28/17 20:35 09/28/17 21:17 Temperature 98.9 F Temperature Source Oral Pulse Rate [Right] 82 91 H 87 Respiratory Rate 18 18 18 Blood Pressure [Right Arm] 96/61 121/57 117/66 Blood Pressure Mean [Right Arm] 72 78 83 Blood Pressure Source [Right Arm] Automatic Cuff Automatic Cuff Automatic Cuff Blood Pressure Position [Right Arm] Supine Supine Supine 02 Sat by Pulse Oximetry 96 93 L 95 Oxygen Delivery Method Nasal Cannula Room Air Room Air Oxygen Flow Rate (LPM) 2 - Lab Data Lab results reviewed: Yes: I reviewed the patient's lab results. Lab Results 09/28/17 17:30: WBC 6.9, RBC 4.47 L, Hgb 13.6 L, Hct 41.3 L, MCV 92.4, MCH 30.3 , MCHC 32.8, RDW 12.0, Plt Count 332, MPV 7.1 L, Neut % (Auto) 61.3, Lymph % ( Auto) 30.0, [place] % (Auto) 6.8, Eos % (Auto) 1.6, Baso % (Auto) 0.4, Neut # (Auto ) 4.2, Lymph # (Auto) 2.1, [place] # (Auto) 0.5, Eos # (Auto) 0.1, Baso # (Auto) 0.0 09/28/17 17:30: Sodium 137, Potassium 3.2 L, Chloride 100, Carbon Dioxide 23, Anion Gap 17.2 H, BUN 13, Creatinine 1.31 H, Estimated Creat Clear 61, Estimated GFR 57 L, Est GFR ( Amer) 69, Glucose 115 H, Troponin I 0.49 H 09/28/17 17:30: Lactic Acid 2.2 H Result diagrams: 09/28/17 17:30 09/28/17 17:30 Orders (Tests/Meds): ED MEDICATIONS Discontinued Medications Generic Name Dose Route Start Last Admin Trade Name Freq PRN Reason Stop Dose Admin Aspirin 324 mg 09/28/17 17:49 09/28/17 18:13 Aspirin 81mg Chewable Tablet PO 09/28/17 17:50 324 mg ONCE ONE Administration Sodium Chloride 1,000 mls @ 999 mls/hr 09/28/17 18:15 09/28/17 18:20 Sod Chloride 0.9% 1000ml Bag IV 09/28/17 19:15 999 mls/hr .Q1H1M NOELLE Administration Sodium Chloride 1,000 mls @ 999 mls/hr 09/28/17 20:30 09/28/17 20:32 Sod Chloride 0.9% 1000ml Bag IV 09/28/17 21:30 999 mls/hr .Q1H1M NOELLE Administration ORDERS Category Date Time Status XR chest 2V Stat Exams 09/28/17 17:49 Taken Blood Culture Stat Micro 09/28/17 17:30 Received ECG Request by /Dre Stat Y 09/28/17 17:49 Ordered - Radiology Data #1 Image(s): Chest Image Reviewed: Yes I reviewed the patient's radiology image Pr
[2017-09-28 20:35] VITALS: BP 121/57; PULSE 91; RESP 18; O2SAT 93
[2017-09-28 21:17] VITALS: BP 117/66; PULSE 87; RESP 18; O2SAT 95
--- NOTE | 2017-09-28 21:42 | PC.NURSE ---
DR GREGORIO DISCUSSING CASE WITH DR VELAZCO
[2017-09-28 22:15] LABS: Reflex Lactic Add Lactic Reflex
== END 2017-09-28 22:13 | disposition home or self-care (01) ==
PROVIDERS: Emergency Provider Emergency Medicine; Family Provider Internal Medicine Adolescent Medicine
DX: N28.9 Disorder of kidney and ureter, unspecified (principal); J44.9 Chronic obstructive pulmonary disease, unspecified; I25.119 Atherosclerotic heart disease of native coronary artery with unspecified angina pectoris; F17.210 Nicotine dependence, cigarettes, uncomplicated; F41.9 Anxiety disorder, unspecified; Z79.899 Other long term (current) drug therapy; I25.2 Old myocardial infarction; Z95.5 Presence of coronary angioplasty implant and graft; Z79.82 Long term (current) use of aspirin; F32.9 Major depressive disorder, single episode, unspecified
CPT/HCPCS: 71046; 80048; 83605; 84484; 85025; 87040; 93005; 96365; 96366; 99283

== ENCOUNTER → 2017-11-22 09:44 | Outpatient (CLI) | payer MEDICAID, SELFPAY ==
[2017-11-22 10:43] LABS: Alanine Aminotransferase 22 U/L (12-78); Albumin Level 4.1 gm/dL (3.4-5.0); Alkaline Phosphatase 92 U/L (46-116); Aspartate Amino Transferase 15 U/L (15-37); Bilirubin,Direct 0.2 mg/dL (0.0-0.2); Bilirubin,Total 0.6 mg/dL (0.2-1.0); Chol/HDL Ratio 4.5 (1-3.5); Cholesterol 184 mg/dL (140-200); HDL Cholesterol 41 mg/dL (27-67); LDL Cholesterol 122 mg/dL (0-130); Total Protein,Serum 7.5 gm/dL (6.4-8.2); Triglycerides 107 mg/dL (30-200); VLDL Cholesterol 21 mg/dL (0-40)
== END ==
PROVIDERS: Family Provider Internal Medicine Adolescent Medicine; PCP Emergency Medicine; Visit Provider Internal Medicine
DX: E78.4 Other hyperlipidemia (principal)
CPT/HCPCS: 36415; 80061; 80076

== ENCOUNTER 2018-10-30 18:55 | Observation (INO) ==
[2018-10-30 19:08] LABS: Basophils # 0.1 K/mm3 (0-0.2); Basophils % 0.8 % (0.1-2.0); Eosinophils # 0.3 K/mm3 (0.0-0.4); Eosinophils % 2.9 % (0.1-12.0); Hematocrit 44.9 % (42.0-52.0); Hemoglobin 14.7 g/dL (14.1-18.0); Lymphocytes # 3.8 K/mm3 (0.7-4.5); Lymphocytes % 40.7 % (10-50); Mean Corpuscular HGB Conc 32.8 g/dL (31.8-35.4); Mean Corpuscular Volume 94.5 fl (80-94); Mean Platelet Volume 7.1 fl (7.4-10.4); Monocytes # 0.6 K/mm3 (0.1-1.0); Monocytes % 6.1 % (1.7-9.3); Neutrophils # 4.6 K/mm3 (1.8-7.8); Neutrophils % 49.5 % (37.0-80.0); Platelet Count 384 K/mm3 (142-424); Red Blood Count 4.75 M/mm3 (4.60-6.20); Red Cell Distribution Width 13.1 % (11.5-17.5); White Blood Count 9.4 K/mm3 (4.8-10.8)
[2018-10-30 19:22] LABS: Anion Gap 13.8 mEq/L (5-15); Blood Urea Nitrogen 11 mg/dL (7-18); Carbon Dioxide 28 mmol/L (21.0-32.0); Chloride 104 mmol/L (98-107); Glucose 105 mg/dL (74-106); Potassium 3.8 mmoL/L (3.5-5.1); Sodium 142 mmol/L (136-145)
--- NOTE | 2018-10-30 21:51 | Emergency Department Note ---
ED Disposition Clinical Impression: Tobacco use Chest pain Qualifiers: Chest pain type: precordial pain Qualified Code(s): R07.2 - Precordial pain Coronary artery disease Qualifiers: Coronary Disease-Associated Artery/Lesion type: unspecified vessel or lesion type [place] vs. transplanted heart: [place] heart Associated angina: with unstable angina Qualified Code(s): I25.110 - Atherosclerotic heart disease of [place] coronary artery with unstable angina pectoris Disposition: Admitted as Observation Condition on Discharge: Fair Referrals: Provider,Referral, [Primary Care Provider] - - Critical Care Critical Care Time: No Attestation: On 10/30/18, the high probability of a clinically significant, sudden or life threatening deterioration of the following system(s) required my full and direct attention, intervention and personal management. The time I documented below is in addition to time spent performing reported procedures but includes the following listed in this critical care notation. Medical Decision Making - Medical Records Medical records reviewed: Yes: I reviewed the patient's medical records. - Amor Inquiry Pt receiving controlled substance: No Vital Signs: 10/30/18 18:55 10/30/18 21:09 10/30/18 21:30 Temperature 97.6 F Temperature Source Oral Pulse Rate [Left Radial] 80 76 80 Respiratory Rate 16 18 Blood Pressure [Right Arm] 146/93 H 135/95 H 124/80 Blood Pressure Mean [Right Arm] 110 108 94 Blood Pressure Source [Right Arm] Automatic Cuff Automatic Cuff Blood Pressure Position [Right Arm] Sitting Sitting 02 Sat by Pulse Oximetry 98 98 95 Oxygen Delivery Method Room Air Room Air - Lab Data Lab results reviewed: Yes: I reviewed the patient's lab results. Lab Results 10/30/18 19:01: WBC 9.4, RBC 4.75, Hgb 14.7, Hct 44.9, MCV 94.5 H, MCH 31.0, MCHC 32.8, RDW 13.1, Plt Count 384, MPV 7.1 L, Neut % (Auto) 49.5, Lymph % (Auto) 40.7, [place] % (Auto) 6.1, Eos % (Auto) 2.9, Baso % (Auto) 0.8, Neut # (Auto) 4.6, Lymph # (Auto) 3.8, [place] # (Auto) 0.6, Eos # (Auto) 0.3, Baso # (A uto) 0.1 10/30/18 19:01: Sodium 142, Potassium 3.8, Chloride 104, Carbon Dioxide 28, Anion Gap 13.8, BUN 11, Creatinine 0.95, Estimated Creat Clear 80, Estimated GFR 83, Est GFR ( Amer) 100, Glucose 105, Calcium 9.0, Troponin I < 0.02 Result diagrams: 10/30/18 19:01 10/30/18 19:01 Orders (Tests/Meds): ED MEDICATIONS Discontinued Medications Generic Name Dose Route Start Last Admin Trade Name Freq PRN Reason Stop Dose Admin Aspirin 324 mg 10/30/18 22:06 Aspirin 81mg Chewable Tablet PO 10/30/18 22:07 ONCE ONE Nitroglycerin 1 gm 10/30/18 22:06 Nitroglycerin 1 Inch Oint Udp TD 10/30/18 22:07 ONCE ONE ORDERS Category Date Time Status XR chest 2V Stat Exams 10/30/18 19:00 Taken - Radiology Data #1 Image(s): Chest Image Reviewed: Yes I reviewed the patient's radiology image Preliminary Findings: Abnormal (copd) - ECG Data Tracing #1 Normal Sinus Rhythm: Yes Ischemic changes: non-specific ST-T wave changes, t wave inversions ECG compared to prior tracings: there are no significant changes - Physician Consults Physician Consulted: leroy Reason -: Admission Additional Consult: huey Reason -: Pt condition Chest Pain HPI - General Chief Complaint: Chest Pain Stated Complaint: chest pain Time Seen by Provider: 10/30/18 20:40 Mode of Arrival: Ambulatory Source of Information: Patient, Relative, Medical Record Limitations: No Limitations Description of Symptoms (Recalled from ER Triage Doc. by RN): Pt states that he started with chest pain a few days ago but has had increased center chest pain since earlier today. c/o dizziness and numbness going down both arms and his right arm feels really cold - History of Present Illness HPI narrative: this wm with hx of cad with last stents 09/22 at [facility]- presents with new onset of ant chest pressure with feeling of tingling in ext but no palpitation or syncope - he reports this pain different than prev chest pain or his gerd - he had sz last summer with no clear dx - he has been compliant with meds but continues to use tob complaint: chest pain indicative of cardiac Onset (ago): hour(s) Duration: intermittent Activity at onset: during rest Pain location: substernal Severity: moderate Quality: tightness Risk Factors for CAD: Hypertension, Hypercholesterolemia, Family Hx of CAD, Smoking Treatments prior to or on arrival for Cardiac Chest Pain: none - CORI Score for Non-Stemi Age of Patient: 50-59 years old Heart Rate: 70-89 bpm Systolic Blood Pressure: 140-159 mmHg Serum Creatinine: 0.80-1.19 mg/dl CHF [place] Class: I-No CHF Other Risk Factors: None Non-Stemi Risk Score: 81 - Related Data Prior Cardiac Testing/Procedures: Stenting Home Medications Medication Instructions Recorded Confirmed Aspirin [Aspirin 81mg EC Tab] 81 mg PO DAILY 10/30/18 10/30/18 Atorvastatin Calcium [Lipitor 40mg 40 mg PO BID 10/30/18 10/30/18 Tablet] Carvedilol [Coreg 3.125mg Tablet] 3.125 mg PO BID 10/30/18 10/30/18 Lisinopril [Zestril 2.5mg Tablet] 2.5 mg PO BID 10/30/18 10/30/18 Ticagrelor [Brilinta 90mg Tablet] 90 mg PO BID 10/30/18 10/30/18 Allergies Allergy/AdvReac Type Severity Reaction Status Date / Time No Known Drug Allergies Allergy Unknown -- Verified 09/28/17 17:25 [facility] History - Hepatitis A Screen Drug use history?: No High risk sexual behaviors?: No History of sexually transmitted infection?: No Currently employed?: No Childcare worker?: No Do you have indoor plumbing?: Yes Do you have electricity?: Yes Attestation statement:: This patient has been screened for Hepatitis A risk factors. I have reviewed the patient's past medical history: Yes Medical History: Reports:: Anxiety, Atherosclerotic Heart Disease, Chronic Obstructive Pulmonary Disease (COPD), Coronary Artery Disease, Depression, Gastroesophageal Reflux Disease(GERD), Hyperlipidemia, Hypertension, Myocardial Infarction Denies:: Cancer, Diabetes Mellitus Type 1, Diabetes Mellitus Type 2, MRSA Other Medical History: Reports: Arthritis Other Surgeries: Yes: Other Amputation: No Fractures: No - Social History Smoking Status: Current every day smoker Tobacco Type: cigarettes # Packs/Day (cigarettes): 1 #Yrs smoked (if former smoker): 30 Alcohol Intake: never Alcohol Intake Frequency:: 3 or more drinks per day Substance Use Type: denies use Occupational Status: other Household Members: other - Psychiatric History Expresses thoughts of harming self/others: None Suicide Plan Description: No Plan Pschychiatric History:: Reports:: Anxiety, Depression Family Hx:: Coronary Artery Disease Comment: He has a 38-year-old daughter ROS Obtained: Yes All systems reviewed & no additional complaints - Constitutional Constitutional: Denies fever(s) - Eyes Eyes: Denies change in vision - ENT Ears, Nose, Mouth, and Throat: Denies sore throat - Cardiovascular Cardiovascular: Reports chest pain - Respiratory Respiratory: No cough - Gastrointestinal Gastrointestingal: Denies: abdominal pain - Genitourinary Male Genitourinary: Denies hematuria - Musculoskeletal Musculoskeletal: Denies joint pain - Integumentary/Breasts Skin/Breast: Denies rash - Neurologic Neurologic: Denies headache(s), Denies seizure-like activity Physical Exam - General General appearance: alert - Head Head exam: normocephalic - Eye Eye exam: Present: PERRL, EOMI. Absent: scleral icterus - ENT ENT exam: Present: mucous membranes dry - Neck Neck exam: Present: trachea midline - Respiratory Respiratory exam: Present: normal lung sounds bilaterally. Absent: respiratory distress - Cardiovascular Cardiovascular exam: Present: regular rate, systolic murmur - Abdominal Exam Abdominal exam: Present: soft - Extremities Exam Extremities exam: Present: full ROM - Neurological Exam Neurological exam: Present: alert, oriented X3, CN II-XII intact - Psychiatric Psychiatric exam: Present: normal affect - Skin Skin exam: Present: intact
[2018-10-31 05:02] LABS: Basophils % 0.3 % (0.1-2.0); Eosinophils # 0.2 K/mm3 (0.0-0.4); Eosinophils % 2.2 % (0.1-12.0); Hematocrit 37.8 % (42.0-52.0); Lymphocytes # 3.6 K/mm3 (0.7-4.5); Lymphocytes % 38.6 % (10-50); Mean Corpuscular HGB Conc 32.3 g/dL (31.8-35.4); Mean Corpuscular Hemoglobin 30.1 pg (27.0-31.2); Mean Corpuscular Volume 93.1 fl (80-94); Mean Platelet Volume 6.4 fl (7.4-10.4); Monocytes # 0.5 K/mm3 (0.1-1.0); Monocytes % 5.8 % (1.7-9.3); Neutrophils # 4.9 K/mm3 (1.8-7.8); Neutrophils % 53.2 % (37.0-80.0); Platelet Count 318 K/mm3 (142-424); Red Blood Count 4.06 M/mm3 (4.60-6.20); Red Cell Distribution Width 13.1 % (11.5-17.5); White Blood Count 9.2 K/mm3 (4.8-10.8)
[2018-10-31 05:13] LABS: Anion Gap 13.8 mEq/L (5-15); Calcium 8.6 mg/dL (8.5-10.1); Chol/HDL Ratio 4.5 (1-3.5); Potassium 3.8 mmoL/L (3.5-5.1)
[2018-10-31 05:32] LABS: Hemoglobin 12.4 g/dL (14.1-18.0)
--- NOTE | 2018-10-31 07:27 | Pharmacy Consult Notes ---
[facility] Pharmacy VTE Monitoring - Patient Demographics Admission date: 10/30/18 Report Date: 10/31/18 Time: 07:26 Allergies/Adverse Reactions: Patient Allergies No Known Drug Allergies Allergy (Unknown, Verified 09/28/17 17:25) -- Height: 1.7 m Weight: 59.874 kg Patient Problems: Current Active Problems Chest pain (Acute) Tobacco use (Acute) Coronary artery disease (Chronic) - VTE Risk Labs: VTE Related Lab Results Hgb 12.4 g/dL (14.1-18.0) L D 10/31/18 04:30 Hct 37.8 % (42.0-52.0) L 10/31/18 04:30 Plt Count 318 K/mm3 (142-424) 10/31/18 04:30 BUN 12 mg/dL (7-18) 10/31/18 04:30 Creatinine 0.87 mg/dL (0.70-1.30) 10/31/18 04:30 Estimated Creat Clear 82 mL/min (50-200) 10/31/18 04:30 VTE Score: 4 VTE Risk Level: Low Risk - Prophylaxis VTE Prophylaxis Ordered?: Yes Types of VTE Prophylaxis: TEDS Knee High, Pharmacological Location of Applied Device: Bilateral Lower Extremeties Pharmacologic Type: Other (BRILIN[place]) - VTE Diagnosis Confirmed Treatment or plan recommended: Continue Current Treatment
--- NOTE | 2018-10-31 07:51 | H&P/Discharge Summary ---
General - General Admission date:: 10/30/18 Discharge date: 10/31/18 *Admission Date: 10/30/18 *Chief complaint: anginal pain *History of present illness: Mr. De Oliveira is a 53-year-old white male with known coronary artery disease and previous [place] with stenting in September 2017. He reports coming to the emergency room yesterday due to increased severity of what he reports to be recurrent chest pain. His pain has been quite prominent throughout the entire chest and radiating to his back over the past several weeks but yesterday's episode was the most severe he is ever experienced. Patient is a poor historian with difficulty defining his chest pain other than discomfort across the chest with associated numbness bilaterally in the arms and legs. He states it is similar but not quite the same previous heart attacks and he was just concerned. Symptoms may occur with rest or with activity. Unfortunately is unclear exactly which medications he is taking due to being lost to follow-up with our cardiology locally and no primary care locally. Per report he denies having tried nitroglycerin at home but did state the Nitropaste they put on him yesterday may have improved his symptoms "some" overnight but did not resolve them. ER contacted medicine for admission and cardiology consult. Patient was admitted for serial enzyme monitoring and telemetry. At the time of admission his his EKG in the emergency department showed sinus rhythm with ST-T abnormalities inferiorly without elevation or change compared to previous. His cardiac enzymes are normal x3. He continues to report intermittent discomfort in the chest this morning at rest, some is reproducible on palpation. They are brief in duration with no associated nausea, vomiting or diaphoresis. Of note he continues to smoke a pack a day but reports he did quit drinking approximately 4 months ago. Denies nausea, shortness of breath, emesis, diarrhea or changes in mentation, focal neurologic deficits [facility] History I have reviewed the patient's past medical history: Yes Medical History: Reports:: Anxiety, Atherosclerotic Heart Disease, Chronic Obstructive Pulmonary Disease (COPD), Coronary Artery Disease, Depression, Gastroesophageal Reflux Disease(GERD), Hyperlipidemia, Hypertension, Myocardial Infarction Denies:: Cancer, Diabetes Mellitus Type 1, Diabetes Mellitus Type 2, MRSA *Have you ever received a pneumonia vaccine?: No *Have you received a flu vaccine this season?: No Other Medical History: Reports: Arthritis Other Surgeries: Yes: Other Amputation: No Fractures: No - *Social History Smoking Status: Current every day smoker Tobacco Type: cigarettes # Packs/Day (cigarettes): 1 #Yrs smoked (if former smoker): 30 Alcohol Intake: former Alcohol Intake Frequency:: 3 or more drinks per day Substance Use Type: former substance user, marijuana Last Used Substance: unknown *Occupational Status:: other Housing: house Household Members: family, other *Travel in the last 8 weeks: None - Psychiatric History Expresses thoughts of harming self/others: None Suicide Plan Description: No Plan Pschychiatric History:: Reports:: Anxiety, Depression Family Hx:: Coronary Artery Disease Review of Systems - Review of Systems Review of systems:: pertinent systems reviewed and negative unless documented below - *Neurologic Denies headache(s), Denies seizure-like activity Exam Vital signs and Labs for Last 24 Hours: Temp Pulse Resp BP Pulse Ox 97.6 F 70 18 111/73 95 10/31/18 04:00 10/31/18 04:00 10/31/18 04:00 10/31/18 04:00 10/31/18 04:00 Laboratory Results - last 24 hr 10/30/18 19:01: WBC 9.4, RBC 4.75, Hgb 14.7, Hct 44.9, MCV 94.5 H, MCH 31.0, MCHC 32.8, RDW 13.1, Plt Count 384, MPV 7.1 L, Neut % (Auto) 49.5, Lymph % (Auto) 40.7, [place] % (Auto) 6.1, Eos % (Auto) 2.9, Baso % (Auto) 0.8, Neut # (Auto) 4.6, Lymph # (Auto) 3.8, [place] # (Auto) 0.6, Eos # (Auto) 0.3, Baso # (Auto) 0.1 10/30/18 19:01: Sodium 142, Potassium 3.8, Chloride 104, Carbon Dioxide 28, Anion Gap 13.8, BUN 11, Creatinine 0.95, Estimated Creat Clear 80, Estimated GFR 83, Est GFR ( Amer) 100, Glucose 105, Calcium 9.0, Troponin I < 0.02 10/31/18 01:30: Troponin I < 0.02 10/31/18 04:30: Troponin I < 0.02 10/31/18 04:30: WBC 9.2, RBC 4.06 L, Hgb 12.4 L D, Hct 37.8 L, MCV 93.1, MCH 30.1, MCHC 32.3, RDW 13.1, Plt Count 318, MPV 6.4 L, Neut % (Auto) 53.2, Lymph % (Auto) 38.6, [place] % (Auto) 5.8, Eos % (Auto) 2.2, Baso % (Auto) 0.3, Neut # (Auto) 4.9, Lymph # (Auto) 3.6, [place] # (Auto) 0.5, Eos # (Auto) 0.2, Baso # (Auto) 0.0 10/31/18 04:30: Sodium 143, Potassium 3.8, Chloride 109 H, Carbon Dioxide 24, Anion Gap 13.8, BUN 12, Creatinine 0.87, Estimated Creat Clear 82, Estimated GFR 91, Est GFR ( Amer) 111, Glucose 90, Calcium 8.6, Magnesium 1.8, Triglycerides 80, Cholesterol 145, LDL Cholesterol 97, VLDL Cholesterol 16, HDL Cholesterol 32, Cholesterol/HDL Ratio 4.5 H I & O for Last 24 hours: Intake & Output 10/28/18 10/29/18 10/30/18 10/31/18 23:59 23:59 23:59 23:59 Weight 59.874 kg 59.874 kg - *Routine HEENT Exam Head: Present: normocephalic, atraumatic Eye: Present: EOMI, PERRL ENT: Present: mucous membranes moist - *Routine Neck Exam Present: supple, full ROM. Absent: JVD, carotid bruit - *Routine Respiratory Exam Present: CTA bilaterally. Absent: prolonged expiratory phase, wheezes, crackles - *Routine Cardiovascular Exam Present: RRR, Normal S1, Normal S2. Absent: murmur - *Routine Abdominal Exam Present: soft, normoactive bowel sounds. Absent: tenderness - *Routine Rectal Exam Patient deferred: visual exam - *Routine Exam Patient deferred: penile exam - *Routine Extremities Exam Absent: cyanosis, clubbing, edema - *Routine Skin Exam Present: intact, warm. Absent: cyanosis, erythema - *Routine Neurological Exam Present: alert, oriented X3. Absent: altered mental status Hospital Course Hospital Course: Admitted overnight to monitor cardiac enzymes. Found to be negative. cardiology consulted and assessed sx this morning. Decided patient would benefit from Stress test. Patient taken for stress test with normal findings. Chest pain not from cardiac etiology at this time. No further inpatient needs. Medical management optimized as per the med rec list. Follow-up for further eval as outpatient. Results Labs on day of discharge: Labs from last 24 hours 10/31/18 10/31/18 10/31/18 04:30 04:30 04:30 WBC 9.2 RBC 4.06 L Hgb 12.4 L D Hct 37.8 L MCV 93.1 MCH 30.1 MCHC 32.3 RDW 13.1 Plt Count 318 MPV 6.4 L Neut % (Auto) 53.2 Lymph % (Auto) 38.6 [place] % (Auto) 5.8 Eos % (Auto) 2.2 Baso % (Auto) 0.3 Neut # (Auto) 4.9 Lymph # (Auto) 3.6 [place] # (Auto) 0.5 Eos # (Auto) 0.2 Baso # (Auto) 0.0 Sodium 143 Potassium 3.8 Chloride 109 H Carbon Dioxide 24 Anion Gap 13.8 BUN 12 Creatinine 0.87 Estimated Creat Clear 82 Estimated GFR 91 Est GFR ( Amer) 111 Glucose 90 Calcium 8.6 Magnesium 1.8 Troponin I < 0.02 Triglycerides 80 Cholesterol 145 LDL Cholesterol 97 VLDL Cholesterol 16 HDL Cholesterol 32 Cholesterol/HDL Ratio 4.5 H 10/31/18 10/30/18 10/30/18 01:30 19:01 19:01 WBC 9.4 RBC 4.75 Hgb 14.7 Hct 44.9 MCV 94.5 H MCH 31.0 MCHC 32.8 RDW 13.1 Plt Count 384 MPV 7.1 L Neut % (Auto) 49.5 Lymph % (Auto) 40.7 [place] % (Auto) 6.1 Eos % (Auto) 2.9 Baso % (Auto) 0.8 Neut # (Auto) 4.6 Lymph # (Auto) 3.8 [place] # (Auto) 0.6 Eos # (Auto) 0.3 Baso # (Auto) 0.1 Sodium 142 Potassium 3.8 Chloride 104 Carbon Dioxide 28 Anion Gap 13.8 BUN 11 Creatinine 0.95 Estimated Creat Clear 80 Estimated GFR 83 Est GFR ( Amer) 100 Glucose 105 Calcium 9.0 Magnesium Troponin I < 0.02 < 0.02 Triglycerides Cholesterol LDL Cholesterol VLDL Cholesterol HDL Cholesterol Cholesterol/HDL Ratio DS: Diagnosis - Discharge Diagnosis (1) Chest pain Status: Acute (2) Tobacco use Status: Acute (3) Coronary artery disease Status: Chronic (4) Abnormal EKG Status: Acute (5) History of ETOH abuse Status: Acute (6) HLD (hyperlipidemia) Status: Chronic (7) Stented coronary artery Status: Chronic Discharge Medications - Medications for Discharge Home Medication List at Discharge: New Atorvastatin Calcium [Lipitor 40mg Tablet] 40 mg PO DAILY 30 Days #30 tablet Clopidogrel Bisulfate [Plavix 75mg Tab] 75 mg PO DAILY 30 Days #30 tablet Famotidine [Pepcid 20mg Tablet] 20 mg PO BID 30 Days #60 tablet Metoprolol Tartrate [Lopressor 25mg tablet] 25 mg PO BID 30 Days #60 tablet Topiramate 50 mg PO BID 30 Days #60 tablet Disposition Disposition: Home, Self-Care
--- NOTE | 2018-10-31 07:57 | Consult Report ---
History of Present Illness Consult date: 10/31/18 Requesting physician: Nikhil Tellez Consult reason: chest pain Chief complaint: Chest pain Additional Medical History:: 1. Coronary artery disease A. Cardiac cath, 09/2017, ANGIOGRAPHIC RESULTS: 1. The left main artery normal 2. The left anterior descending artery is normal throughout 3. The circumflex artery is a large nondominant vessel and normal 4. The right coronary artery is a dominant vessel with stents in the mid segment which have 50% concentric in-stent restenosis. The vessel is then occluded distal to the RV marginal branch. The posterior lateral branch has a proximal concentric 90% stenosis 5. The [facility]WIN ventriculogram reveals normal ejection fraction estimated at 60% 6. The left ventricular end-diastolic pressure 20 mmHg IMPRESSION: 1. Acute ST elevation myocardial infarction involving the right coronary artery producing an inferior myocardial infarction 2. Successful stenting of the mid dominant right coronary artery 100% occlusion reduced to 0% with 1 drug-eluting stent 3. Severe stenosis in the proximal posterior lateral ventricular branch with successful stenting reducing the 90% stenosis to 0% 4. Normal ejection fraction 5. Mildly elevated LVEDP 2. Hypertension with hypertensive heart disease 3. Hyperlipidemia 4. Tobacco use 5. History of alcohol abuse, recently discontinued 6. History of seizure in 02/2018 possibly related to alcohol use 7. History of medication noncompliance 8. Chronic back and neck pain. History of present illness: 53-year-old white male with known coronary artery disease and previous WV with stenting presented to the emergency department for recurrent episode of chest pain yesterday. Patient is a poor historian with difficulty defining his chest pain other than discomfort across the chest with associated numbness bilaterally in the arms and legs. Symptoms may occur with rest or with activity. He is unsure if they are similar to his previous chest pain associated with his WV's. He has not tried nitroglycerin at home but did state the Nitropaste they put on him yesterday may have improved his symptoms some overnight but did not resolve them. His EKG in the emergency department showed sinus rhythm with ST-T abnormalities inferiorly without elevation or change compared to previous. Patient's cardiac enzymes overnight returned normal x3. Patient continues to have intermittent discomfort in the chest this morning at rest. They are brief in duration with no associated nausea, vomiting or diaphoresis. Patient relates he quit drinking approximately 3 months ago. He does continue to smoke. He has been seeing cardiology at [facility] with change in his medications although the patient states he is basically homeless and only recently acquired insurance. He has only been taken an aspirin until yesterday when he picked up his medications in [place]. [facility] [place] History Medical History: Reports:: Anxiety, Atherosclerotic Heart Disease, Chronic Obstructive Pulmonary Disease (COPD), Coronary Artery Disease, Depression, Gastroesophageal Reflux Disease(GERD), Hyperlipidemia, Hypertension, Myocardial Infarction Denies:: Cancer, Diabetes Mellitus Type 1, Diabetes Mellitus Type 2, MRSA *Have you ever received a pneumonia vaccine?: No *Have you received a flu vaccine this season?: No Other Medical History: Reports: Arthritis Other Surgeries: Yes: Other Amputation: No Fractures: No - *Social History Smoking Status: Current every day smoker Tobacco Type: cigarettes # Packs/Day (cigarettes): 1 #Yrs smoked (if former smoker): 30 Alcohol Intake: former Alcohol Intake Frequency:: 3 or more drinks per day Substance Use Type: former substance user, marijuana Last Used Substance: unknown *Occupational Status:: other Housing: house Household Members: family, other *Travel in the last 8 weeks: None - Psychiatric History Expresses thoughts of harming self/others: None Suicide Plan Description: No Plan Pschychiatric History:: Reports:: Anxiety, Depression Family Hx:: Coronary Artery Disease Meds Home Medications Medication Instructions Recorded Confirmed Type Atorvastatin Calcium [Lipitor 40mg 40 mg PO DAILY 10/30/18 10/31/18 History Tablet] Clopidogrel Bisulfate [Plavix 75mg 75 mg PO DAILY 10/31/18 10/31/18 History Tab] Famotidine [Pepcid 20mg Tablet] 20 mg PO BID 10/31/18 10/31/18 History Metoprolol Tartrate [Lopressor 25 mg PO BID 10/31/18 10/31/18 History 25mg tablet] Topiramate 50 mg PO BID 10/31/18 10/31/18 History Allergies Allergy/AdvReac Type Severity Reaction Status Date / Time No Known Drug Allergies Allergy Unknown -- Verified 09/28/17 17:25 Review of Systems - *Cardiovascular Reports chest pain, Denies shortness of breath with activity - *Respiratory Denies shortness of breath with activity - *Gastrointestinal Denies abdominal pain, Denies nausea, Denies vomiting - *Genitourinary Denies blood in urine - *Musculoskeletal Reports back pain, Reports neck pain, Reports numbness - *Neurologic Denies headache(s), Denies seizure-like activity Exam Vital signs and Labs for Last 24 Hours: Temp Pulse Resp BP Pulse Ox 97.6 F 70 18 111/73 95 10/31/18 04:00 10/31/18 04:00 10/31/18 04:00 10/31/18 04:00 10/31/18 04:00 Laboratory Results - last 24 hr 10/30/18 19:01: WBC 9.4, RBC 4.75, Hgb 14.7, Hct 44.9, MCV 94.5 H, MCH 31.0, MCHC 32.8, RDW 13.1, Plt Count 384, MPV 7.1 L, Neut % (Auto) 49.5, Lymph % (Auto) 40.7, [place] % (Auto) 6.1, Eos % (Auto) 2.9, Baso % (Auto) 0.8, Neut # (Auto) 4.6, Lymph # (Auto) 3.8, [place] # (Auto) 0.6, Eos # (Auto) 0.3, Baso # (Auto) 0.1 10/30/18 19:01: Sodium 142, Potassium 3.8, Chloride 104, Carbon Dioxide 28, Anion Gap 13.8, BUN 11, Creatinine 0.95, Estimated Creat Clear 80, Estimated GFR 83, Est GFR ( Amer) 100, Glucose 105, Calcium 9.0, Troponin I < 0.02 10/31/18 01:30: Troponin I < 0.02 10/31/18 04:30: Troponin I < 0.02 10/31/18 04:30: WBC 9.2, RBC 4.06 L, Hgb 12.4 L D, Hct 37.8 L, MCV 93.1, MCH 30.1, MCHC 32.3, RDW 13.1, Plt Count 318, MPV 6.4 L, Neut % (Auto) 53.2, Lymph % (Auto) 38.6, [place] % (Auto) 5.8, Eos % (Auto) 2.2, Baso % (Auto) 0.3, Neut # (Auto) 4.9, Lymph # (Auto) 3.6, [place] # (Auto) 0.5, Eos # (Auto) 0.2, Baso # (Auto) 0.0 10/31/18 04:30: Sodium 143, Potassium 3.8, Chloride 109 H, Carbon Dioxide 24, Anion Gap 13.8, BUN 12, Creatinine 0.87, Estimated Creat Clear 82, Estimated GFR 91, Est GFR ( Amer) 111, Glucose 90, Calcium 8.6, Magnesium 1.8, Triglycerides 80, Cholesterol 145, LDL Cholesterol 97, VLDL Cholesterol 16, HDL Cholesterol 32, Cholesterol/HDL Ratio 4.5 H I & O for Last 24 hours: Intake & Output 10/28/18 10/29/18 10/30/18 10/31/18 11:59 11:59 11:59 11:59 Weight 132 lb - *Routine HEENT Exam Head: Present: normocephalic Eye: Present: EOMI, PERRL ENT: Present: mucous membranes moist - *Routine Neck Exam Present: supple. Absent: JVD, carotid bruit - *Routine Respiratory Exam Present: CTA bilaterally. Absent: accessory muscle use, rales, rhonchi, wheezes - *Routine Cardiovascular Exam Present: RRR. Absent: murmur, gallop, rubs - *Routine Abdominal Exam Present: soft. Absent: tenderness, distended, guarding - *Routine Extremities Exam Absent: edema, calf tenderness - *Routine Neurological Exam Present: alert, oriented X3, moving all extremities Assessment and Plan (1) Chest pain Current visit: Yes Status: Acute Qualifiers: Chest pain type: precordial pain Qualified Code(s): R07.2 - Precordial pain Category: Medical Code(s): R07.9 - Chest pain, unspecified (2) Tobacco use Current visit: Yes Status: Acute Category: Medical Code(s): Z72.0 - Tobacco use (3) Coronary artery disease Current visit: Yes Status: Chronic Qualifiers: Coronary Disease-Associated Artery/Lesion type: unspecified vessel or lesion type [place] vs. transplanted heart: [place] heart Associated angina: with unstable angina Qualified Code(s): I25.110 - Atherosclerotic heart disease of [place] coronary artery with unstable angina pectoris Category: Medical Code(s): I25.10 - Atherosclerotic heart disease of [place] coronary artery without angina pectoris (4) Abnormal EKG Current visit: No Status: Acute Category: Medical Code(s): R94.31 - Abnormal electrocardiogram [ECG] [EKG] (5) Chronic back pain Current visit: No Status: Acute Category: Medical Code(s): M54.9 - Dorsalgia, unspecified; G89.29 - Other chronic pain (6) History of ETOH abuse Current visit: No Status: Acute Category: Medical Code(s): Z87.898 - Personal history of other specified conditions (7) HLD (hyperlipidemia) Current visit: No Status: Chronic Qualifiers: Hyperlipidemia type: other hyperlipidemia Qualified Code(s): E78.49 - Other hyperlipidemia; E78.4 - Other hyperlipidemia Category: Medical Code(s): E78.5 - Hyperlipidemia, unspecified (8) Stented coronary artery Current visit: No Status: Chronic Category: Surgical Code(s): Z95.5 - Presence of coronary angioplasty implant and graft - Assessment and plan all Dx Assessment and Plan for all problems:: 1. With normal troponins and EKG without acute ST segment changes, would recommend proceeding with stress Myoview or Lexiscan Myoview today to follow-up on the patient's history of coronary artery disease. If no evidence of ischemia, then discharge home later this evening for outpatient follow-up. 2. Recommend continuing aspirin 81 mg daily, Plavix 75 mg daily, statin therapy along with beta-ravi and TRACY inhibitor if blood pressure tolerates.
--- NOTE | 2018-11-01 07:09 | Cardiology Report ---
CA echo doppler complete PROCEDURE: 2-D M-mode and color Doppler study INDICATIONS FOR THE TEST: Chest pain+ COPD+ Heart Murmur Tobacco Smoking+ Palpitations Fatigue Syncope Edema Hypertension+Diabetes Mellitus Rheumatic Fever SOB [place] Obesity Hyperlipidemia+ Family History HD Additional History CAD, STENT, CO ETOH USE PATIENT INFORMATION HEIGHT: 68 WEIGHT:140 GENDER: Male B/P:124/80 2-D/M-MODE INTERPRETATION: 2-D MEASUREMENTS OBSERVED VALUES IN CMS Right Ventricular Dimension (RVDd) 1.7 Interventricular Septum (Thickness)(IVsd) 1.5 Left Ventricular Internal Dimensions(LVIDd) 5.0 Left Ventricular Posterior Wall (Thickness)(LVPWd) 1.1 Aortic Root 3.1 Aortic Cusp Separation 2.2 Left Atrial Dimensions (LAD) 3.4 2D 1. Left atrium is mildly enlarged, left ventricle is normal size, mild concentric left ventricular hypertrophy, visually estimated ejection fraction 55% with no regional wall motion abnormality. 2. The right atrium and right ventricle are normal size and contractility. 3. The aortic valve is minimally thickened and fibrosed. 4. The mitral and tricuspid valve leaflets are minimally thickened. 5. The pulmonic valve is poorly visualized. 6. No significant pericardial effusion noted. DOPPLER INTERROGATION: Doppler interrogation of the aortic, mitral and tricuspid valvular presence of mild mitral and tricuspid regurgitation, tricuspid regurgitation jet velocity is inadequate for calculation of the right ventricular systolic pressure, diastolic parameters are within normal range. CONCLUSION: 1. Mildly enlarged left atrium, normal left ventricular size, mild concentric left ventricular hypertrophy, visually estimated ejection fraction of 55% with no regional wall motion abnormality, diastolic parameters are within normal range. 2. Mild mitral and tricuspid regurgitation 3. No significant pericardial effusion noted.
== END 2018-10-31 16:56 | disposition home or self-care (01) ==
LOC: 2ND 18:55 → ER 18:55 → 2ND 22:28
PROVIDERS: ADMIT Internal Medicine Adolescent Medicine; ATTEND Internal Medicine Adolescent Medicine
DX: Z95.5 Presence of coronary angioplasty implant and graft; R07.9 Chest pain, unspecified; K21.9 Gastro-esophageal reflux disease without esophagitis; E78.5 Hyperlipidemia, unspecified; Z79.899 Other long term (current) drug therapy; F10.11 Alcohol abuse, in remission; J44.9 Chronic obstructive pulmonary disease, unspecified; I25.110 Atherosclerotic heart disease of native coronary artery with unstable angina pectoris; Z79.82 Long term (current) use of aspirin; Z79.02 Long term (current) use of antithrombotics/antiplatelets; Z72.0 Tobacco use; I25.2 Old myocardial infarction
CPT/HCPCS: 36415; 71020; 71046; 78452; 80048; 80061; 83735; 84484; 85025; 93005; 93017; 93306; 99284; A9502; G0378

== ENCOUNTER → 2019-01-08 15:57 | Outpatient (CLI) | payer MEDICAID, SELFPAY ==
--- NOTE | 2019-01-08 | CT_ITS ---
CT abdomen pelvis wo con CLINICAL INDICATION: Abdominal pain with hematuria ITS.REASON: HEMATURIA ORDERING PHYSICIAN: Nikhil Tellez MD PATIENT AGE: 53 years COMPARISON: None TECHNIQUE: Axial images obtained with sagittal and coronal reformats. All CT scans at the facility use one or more dose reduction, viz: automated exposure control, ma/kV adjustment per patient size (including targeted exams where dose is matched to indication, i.e. head), or iterative reconstruction technique. PROCEDURE: Oral Contrast: None IV Contrast: None . FINDINGS: Lower thorax: There is patchy groundglass density in both lung bases with atelectatic change in the right lung base posteriorly. The liver, spleen, gallbladder, adrenal glands, and pancreas have an unremarkable unenhanced appearance. There is a nonobstructing 2 mm stone in the upper pole the right kidney. No hydronephrosis or ureteral calculi evident. There is moderate amount retained colonic feces. No evidence of appendicitis or diverticulitis. No intestinal obstruction or free air. There is thickening along the left aspect of the urinary bladder with some faint calcification. This could be related to neoplasm. The bladder wall here measures approximately 15 mm in thickness. Chronic wedging is present at T10, T11, T12, and L1. Degenerative changes are present in the thoracic lumbar spine. IMPRESSION: 1. Asymmetric urinary bladder wall thickening on the left with some faint calcification. Differential diagnosis would include neoplasm or asymmetric chronic inflammatory/infectious changes. Cystoscopy suggested for further evaluation. 2. Nonobstructing right nephrolithiasis. 3. Patchy groundglass density in the lung bases nonspecific and could be related to pneumonitis either acute or chronic
== END ==
PROVIDERS: PCP Internal Medicine Adolescent Medicine; Visit Provider Internal Medicine Adolescent Medicine
DX: R31.9 Hematuria, unspecified (principal)
CPT/HCPCS: 74176

== ENCOUNTER → 2019-01-23 18:55 | Outpatient (CLI) | payer MEDICAID, SELFPAY ==
[2019-01-23 19:19] LABS: Basophils # 0.1 K/mm3 (0-0.2); Basophils % 0.5 % (0.1-2.0); Eosinophils # 0.2 K/mm3 (0.0-0.4); Hematocrit 40.6 % (42.0-52.0); Hemoglobin 13.7 g/dL (14.1-18.0); Lymphocytes # 3.6 K/mm3 (0.7-4.5); Lymphocytes % 32.7 % (10-50); Mean Corpuscular HGB Conc 33.8 g/dL (31.8-35.4); Mean Corpuscular Hemoglobin 30.9 pg (27.0-31.2); Mean Corpuscular Volume 91.4 fl (80-94); Mean Platelet Volume 6.3 fl (7.4-10.4); Monocytes # 0.6 K/mm3 (0.1-1.0); Monocytes % 5.6 % (1.7-9.3); Neutrophils # 6.5 K/mm3 (1.8-7.8); Neutrophils % 59.3 % (37.0-80.0); Platelet Count 440 K/mm3 (142-424); Red Blood Count 4.44 M/mm3 (4.60-6.20); Red Cell Distribution Width 13.6 % (11.5-17.5)
[2019-01-23 20:04] LABS: Alanine Aminotransferase 19 U/L (12-78); Albumin Level 3.8 gm/dL (3.4-5.0); Albumin/Globulin Ratio 1.3 (1.1-1.8); Alkaline Phosphatase 88 U/L (46-116); Anion Gap 15.9 mEq/L (5-15); Aspartate Amino Transferase 4 U/L (15-37); Bilirubin,Total 0.3 mg/dL (0.2-1.0); Blood Urea Nitrogen 13 mg/dL (7-18); Calcium 8.7 mg/dL (8.5-10.1); Carbon Dioxide 23 mmol/L (21.0-32.0); Chloride 103 mmol/L (98-107); Creatinine,Serum 1.17 mg/dL (0.70-1.30); Estimated Glomerular Filt Rate 65 ml/min (>60); GFR (African American) 79 ML/MIN (>60); Globulin 2.9 gm/dl (1.3-3.2); Glucose 87 mg/dL (74-106); Potassium 3.9 mmoL/L (3.5-5.1); Sodium 138 mmol/L (136-145); Total Protein,Serum 6.7 gm/dL (6.4-8.2)
== END ==
PROVIDERS: PCP Internal Medicine Adolescent Medicine; Visit Provider Internal Medicine Adolescent Medicine
DX: R31.9 Hematuria, unspecified (principal)
CPT/HCPCS: 36415; 80053; 85025

== ENCOUNTER → 2019-02-26 16:07 | Outpatient (CLI) | payer MEDICAID, SELFPAY | PROVIDERS: Visit Provider Urology | DX: N32.89 Other specified disorders of bladder (principal) | CPT/HCPCS: 87086 ==

== ENCOUNTER → 2019-07-18 08:45 | Outpatient (CLI) | payer OTHER, SELFPAY ==
[2019-07-18 09:04] LABS: Basophils % 0.4 % (0.1-2.0); Eosinophils # 0.4 K/mm3 (0.0-0.4); Eosinophils % 2.8 % (0.1-12.0); Hematocrit 43.1 % (42.0-52.0); Hemoglobin 13.5 g/dL (14.1-18.0); Lymphocytes # 3.1 K/mm3 (0.7-4.5); Lymphocytes % 25.4 % (10-50); Mean Corpuscular HGB Conc 31.3 g/dL (31.8-35.4); Mean Corpuscular Hemoglobin 30.1 pg (27.0-31.2); Mean Corpuscular Volume 96.1 fl (80-94); Mean Platelet Volume 7.5 fl (7.4-10.4); Monocytes # 0.6 K/mm3 (0.1-1.0); Monocytes % 4.8 % (1.7-9.3); Neutrophils # 8.1 K/mm3 (1.8-7.8); Neutrophils % 66.6 % (37.0-80.0); Platelet Count 597 K/mm3 (142-424); Red Blood Count 4.48 M/mm3 (4.60-6.20); Red Cell Distribution Width 13.4 % (11.5-17.5); White Blood Count 12.2 K/mm3 (4.8-10.8)
[2019-07-18 09:55] LABS: Alanine Aminotransferase 15 U/L (12-78); Albumin Level 3.6 gm/dL (3.4-5.0); Albumin/Globulin Ratio 1.1 (1.1-1.8); Alkaline Phosphatase 98 U/L (46-116); Aspartate Amino Transferase 8 U/L (15-37); Bilirubin,Total 0.2 mg/dL (0.2-1.0); Blood Urea Nitrogen 12 mg/dL (7-18); Calcium 9.1 mg/dL (8.5-10.1); Carbon Dioxide 24 mmol/L (21.0-32.0); Chloride 107 mmol/L (98-107); Creatinine,Serum 1.02 mg/dL (0.70-1.30); Estimated Glomerular Filt Rate 76 ml/min (>60); GFR (African American) 92 ML/MIN (>60); Globulin 3.4 gm/dl (1.3-3.2); Glucose 109 mg/dL (74-106); Sodium 143 mmol/L (136-145)
== END ==
PROVIDERS: Visit Provider Internal Medicine Adolescent Medicine
DX: C67.4 Malignant neoplasm of posterior wall of bladder (principal); R53.83 Other fatigue; R53.81 Other malaise
CPT/HCPCS: 36415; 80053; 85025

== ENCOUNTER 2019-09-18 10:05 | Outpatient (RCR) | payer OTHER, SELFPAY ==
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
== END 2019-09-18 10:10 | disposition home or self-care (01) ==
LOC: PT 10:05
PROVIDERS: PCP Internal Medicine Adolescent Medicine; Visit Provider Internal Medicine Adolescent Medicine
DX: M54.5 Low back pain (principal); M62.830 Muscle spasm of back
CPT/HCPCS: 97163

== ENCOUNTER → 2019-12-26 14:54 | Outpatient (CLI) | payer OTHER, SELFPAY ==
--- NOTE | 2019-12-26 15:03 | MR_ITS ---
PROCEDURE: MR SHOULDER RT WO CON CLINICAL INDICATION: RIGHT SHOULDER PAIN, ROTATOR CUFF ARTHROPATHY OF RIGHT SHOUL Worsening right shoulder pain COMPARISON: No exams were available for comparison TECHNIQUE: Routine multiplanar multi echo sequences are performed without gadolinium enhancement. FINDINGS: The there are moderate hypertrophic changes of the acromioclavicular joint causing some mild impingement upon the musculotendinous junction of the supraspinatus. There is some mild subacromial stenosis of approximately 5 mm. There is slight increased T2 signal of the supraspinatus tendon suggesting tendinopathy/tendinosis. Small focal area of increased T2 signal is present distally and also along the inferior margin of the supraspinatus tendon and could be due to partial tear. A full-thickness tear is not present. The infraspinatus tendon has an unremarkable appearance. There is mild thickening of the sub subscapularis tendon which could be due to mild tendinopathy/tendinosis. The teres minor tendon appears intact. Bicipital tendon is in place.. Along the superior labrum there is increased signal intensity at the base of the superior labrum on the sagittal image and is felt represent a sublabral recess as opposed to a SLAP tear. IMPRESSION: 1. Acromioclavicular arthropathy with mild impingement upon the musculotendinous junction of the supraspinatus 2. Tendinopathy/tendinosis of the supraspinatus tendon with possible partial tear along the inferior margin and distally. A full-thickness tear is not felt to be present 3. Suspected sublabral recess of the superior labrum as a normal variant Dictated by: Juve Padilla MD 12/27/2019 18:29 Electronically signed by Juve Padilla MD in [place] 12/27/2019 18:29
== END ==
PROVIDERS: PCP Internal Medicine Adolescent Medicine; Visit Provider Internal Medicine Adolescent Medicine
DX: M25.511 Pain in right shoulder (principal); M12.811 Other specific arthropathies, not elsewhere classified, right shoulder
CPT/HCPCS: 73221

== ENCOUNTER → 2020-02-12 08:30 | Outpatient (CLI) | payer OTHER, SELFPAY ==
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
== END ==
PROVIDERS: PCP Internal Medicine Adolescent Medicine; Visit Provider Orthopaedic Surgery
DX: M25.511 Pain in right shoulder (principal)
CPT/HCPCS: 73030

== ENCOUNTER → 2020-02-19 08:55 | Outpatient (POV) | payer OTHER, SELFPAY ==
[2020-02-19 09:16] VITALS: BP 143/94; PULSE 120; RESP 18; TEMP 36.6; O2SAT 98; BMI 23.9
--- NOTE | 2020-02-19 10:47 | HMH.PMCON ---
Assessment and Plan (1) Degenerative disc disease, cervical Current visit: Yes Status: Chronic Category: Medical Code(s): M50.30 - Other cervical disc degeneration, unspecified cervical region (2) Degenerative disc disease, lumbar Current visit: Yes Status: Chronic Category: Medical Code(s): M51.36 - Other intervertebral disc degeneration, lumbar region (3) Right shoulder pain Current visit: Yes Status: Chronic Category: Medical Code(s): M25.511 - Pain in right shoulder - Assessment and plan all Dx Assessment and Plan for all problems:: We will schedule the patient for a MRI to help determine pathology. We will follow-up with him after this reassess his symptoms at that time. We will also send him for a second opinion in regards to his right shoulder pain. I will follow-up with him at his next appointment he has been instructed to call the office if he has any issues prior to his next appointment. Dr. Hebert has reviewed this note and agrees with this plan of care. This note was dictated using voice recognition software and may contain errors or omissions HPI - Data of Consult Consult date: 02/19/20 Requesting Physician: Minnie Meza APRN Primary Care Provider: Nikhil Tellez MD - Consult Narrative Reason for consult: Back pain, leg pain, right shoulder pain History of present illness: Mr. De Oliveira is a 55 year old male who presents today to discuss his low back pain. Patient was seen by us in the past and had epidural injections and medial branch block with no relief. Patient has also had quite a bit of right shoulder pain he is currently in physical therapy for this. Patient I discussed a second opinion for his right shoulder he would like to be seen in [place]. He does have a neurology consult in March 10. Patient and I had a discussion in regards to getting updated imaging so we can help determine pathology of his pain. Patient does seem to have symptoms of spinal stenosis with neurogenic claudication. He has difficulty standing and walking and gets relief with leaning forward. CC: Minnie Meza APRN [facility] History I have reviewed the patient's past medical history: Yes Medical History: Reports:: Anxiety, Atherosclerotic Heart Disease, Cancer (BLADDER), Chronic Obstructive Pulmonary Disease (COPD), Coronary Artery Disease, Depression, Gastroesophageal Reflux Disease(GERD), Hyperlipidemia, Hypertension, Myocardial Infarction (X2) Denies:: Diabetes Mellitus Type 1, Diabetes Mellitus Type 2, MRSA *Have you ever received a pneumonia vaccine?: Yes *Have you received a flu vaccine this season?: Yes Other Medical History: Reports: Arthritis Laterality Cases: Left: Other Other Surgeries: Yes: No Previous Surgery, Colonoscopy, Colostomy, Coronary Stent, Other Amputation: No Fractures: No - *Social History Smoking Status: Current every day smoker Tobacco Type: cigarettes # Packs/Day (cigarettes): 1 #Yrs smoked (if former smoker): 30 Alcohol Intake: former Alcohol Intake Frequency:: 3 or more drinks per day Substance Use Type: painkillers Last Used Substance: unknown *Occupational Status:: other Housing: house Household Members: other *Travel in the last 8 weeks: None - Psychiatric History Pschychiatric History:: Reports:: Anxiety, Depression Family Hx:: Unable to obtain Review of Systems - Review of Systems ROS General: no recent weight change, no fever, no sleep disturbances Respiratory: no cough, no shortness of air, no recurring pulmonary infections Cardiovascular/Peripheral Vascular: No chest pain, No palpitations, no edema, no shortness of breath. Gastrointestinal: no new onset incontinence, normal bowel movements reported Genitourinary: no new onset incontinence Musculoskeletal: Back pain, right shoulder pain Psychiatric: normal mood/ affect Neurological: [denies new onset weakness in extremities], [denies new onset balance issues] Meds Home Medications
== END ==
PROVIDERS: PCP Internal Medicine Adolescent Medicine; Visit Provider Clinical Nurse Specialist Family Health
DX: M50.30 Other cervical disc degeneration, unspecified cervical region (principal); M54.16 Radiculopathy, lumbar region; M25.511 Pain in right shoulder
CPT/HCPCS: 99212

== ENCOUNTER → 2020-02-21 16:00 | Outpatient (CLI) | payer OTHER, SELFPAY ==
--- NOTE | 2020-02-21 16:04 | MR_ITS ---
PROCEDURE: MR LUMBAR SPINE WO CON CLINICAL INDICATION: LOW BACK PAIN Low back pain with right leg pain numbness and tingling COMPARISON: ABDPELWO CT abdomen pelvis wo con from 01/08/2019 TECHNIQUE: Standard multiplanar multiecho sequences are performed without contrast. 3-D MIP and myelographic images are also rendered and reviewed FINDINGS: There is normal alignment. The spinal cord ends at the T12 level. There is multilevel lumbar spondylosis. There is a transitional segment at the lumbosacral junction which is labeled as L5. T11-T12: Mild degenerative disc disease with mild facet and ligamentum hypertrophy. T12-L1: Degenerate disc disease with facet and ligamentum hypertrophy with bulging disc with severe left lateral recess and foraminal narrowing. There is mild wedging of T12 and L1 which is either congenital or chronic without evidence bone marrow edema. Unchanged from 01/08/2019 CT scan. Ventral osteophytes are noted at this level as well. L1-L2: Small left paracentral disc protrusion with mild bulging disc along with facet and ligamentum hypertrophy. There is left lateral recess narrowing with some impingement upon the L2 nerve root from the disc protrusion. There is severe left-sided lateral recess and foraminal narrowing. L2-L3: Bulging disc with moderate facet and ligamentum hypertrophy with severe bilateral lateral recess and foraminal narrowing. This is slightly more severe on the left. There is canal stenosis at this level. L3-L4: Bulging disc with facet and ligamentum hypertrophy with severe bilateral lateral recess and foraminal narrowing with canal stenosis. L4-5: Mild bulging disc with facet and ligamentum hypertrophy with severe bilateral foraminal narrowing and mild bilateral lateral recess narrowing. L5-S1: Facet hypertrophic change on the right with right-sided foraminal narrowing. No extruded herniated disc is evident. IMPRESSION: Multilevel lumbar spondylosis with degenerative disc disease and bulging disc along with facet and ligamentum hypertrophy with varying degrees of lateral recess and foraminal narrowing as well as canal stenosis. Please see above for detailed description at each level. There is a small left paracentral disc protrusion at L1-L2 No extruded herniated disc are identified Dictated by: Juve Padilla MD 02/22/2020 12:32 Electronically signed by Juve Padilla MD in [place] 02/22/2020 12:32
== END ==
PROVIDERS: PCP Internal Medicine Adolescent Medicine; Visit Provider Clinical Nurse Specialist Family Health
DX: M54.5 Low back pain (principal)
CPT/HCPCS: 72148; 76376

== ENCOUNTER 2020-02-27 14:00 | Outpatient (RCR) | payer OTHER, SELFPAY ==
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
--- NOTE | 2020-02-19 11:16 | HMH.RHREAS ---
Rehab Reassessment Rehab OP Re-assessment Start: 02/19/20 10:50 Freq: Status: Active Protocol: Document 02/19/20 10:51 RMMARITZA (Rec: 02/19/20 11:16 [email or web address] [id number]) Electronically Signed By Cyn Black OT 02/19/20 10:51 Rehab Re-assessment Subjective Subjective I am still hurting bad. Objective Objective Notes Pt continues to be seen twice a week to address right shoulder deficits. Each time, pt engages in R shoulder AROM /AAROM/Strengthening exercises . Pt is unable to receive modalities due to contraindication of cancer. Assessment Progress Assessment Slower Than Expected Assessment Notes Pt continues to report significant pain at right shoulder. Pt did see ortho last week and received an injection, but does not feel it has improved his pain at all. Pt reports his worst pain at this time since beginning therapy is a 7/10. Pt does feel he has improved 50%, but he is still having signficant pain. Pt's AROM has improved, but is still not within normal limits. Current AROM R shoulder Flex: 155 degrees Abd: 110 degrees ER: 85 degrees IR: 65 degrees Patient goals met Pt has met some short term goals: Pt is able to complete R shoulder exercises for 20 minutes prior to rest. Goals Not Met All MMT/AROM/pain Short term and alf goals Revised Goals Pt needs to progress towards all goals that have not been met; both short term and emt intermediate Plan Plan Continue with OT plan of care at this time. Frequency of Therapy 2x's a week Duration of therapy 4 more weeks Time and Billing Re-Eval Time 15 Re-Eval Billing Units 1 PHYSICIAN CERTIFICATION: Bj dasilva
== END 2020-02-27 14:05 | disposition home or self-care (01) ==
LOC: OT 14:00
PROVIDERS: PCP Internal Medicine Adolescent Medicine; Visit Provider Internal Medicine Adolescent Medicine
DX: M25.511 Pain in right shoulder (principal); M12.811 Other specific arthropathies, not elsewhere classified, right shoulder; M67.90 Unspecified disorder of synovium and tendon, unspecified site
CPT/HCPCS: 97110; 97140; 97164; 97166

== ENCOUNTER → 2020-03-03 11:20 | Outpatient (POV) | payer OTHER, SELFPAY ==
[2020-03-03 11:28] VITALS: BP 123/78; PULSE 85; RESP 18; O2SAT 98; BMI 19.5
--- NOTE | 2020-03-03 12:17 | XR_ITS ---
PROCEDURE: XR LUMBAR SPINE BENDING ONLY CLINICAL INDICATION: BACK PAIN COMPARISON: MR LUMBAR SPINE WO CON from 02/21/2020 FINDINGS: Flexion and extension views are obtained of the lumbar spine. No abnormal subluxation is evident in flexion or extension. Wedging of T11-T12 and L1 noted as seen on the recent MRI IMPRESSION: No abnormal subluxation. Chronic wedge compression changes of T11-T12 and L1 Dictated by: Juve Padilla MD 03/03/2020 12:54 Electronically signed by Juve Padilla MD in [place] 03/03/2020 12:54
--- NOTE | 2020-03-03 16:41 | HMH.PAINSOAP ---
[facility] Pain Management SOAP Note Subjective:: Patient is a pleasant 55-year-old white male who presents today for follow-up after his most recent MRI. Patient has been seen by us in the past and had epidural injections and medial branch blocks without any relief. He is also had quite a bit of right shoulder pain. He is going to be getting a second opinion at [facility] in regards to his shoulder on 10 March. Patient seems to have symptoms of spinal stenosis with neurogenic claudication. Patient has difficulty standing and walking and gets relief with sitting and leaning forward. Patient states that he cannot stand for long periods of time without resting and rounding his back. Patient has weakness in his legs. Patient does have a new MRI showing spondylosis degenerative disc disease and canal stenosis of the lumbar spine. Patient and I discussed potential for to flex procedure. Patient will be sent for flexion and extension x-rays. He appears his pain a 7 out of 10. He is not on any anticoagulation therapy. We will have Dr. Hebert reviewed the x-rays Tuesday. ROS General: no recent weight change, no fever, no sleep disturbances Respiratory: no cough, no shortness of air, no recurring pulmonary infections Cardiovascular/Peripheral Vascular: No chest pain, No palpitations, no edema, no shortness of breath. Gastrointestinal: no new onset incontinence, normal bowel movements reported Genitourinary: no new onset incontinence Musculoskeletal: Back pain, leg pain when standing and walking Psychiatric: normal mood/ affect Neurological: Bilateral lower extremity weakness when standing and walking, [denies new onset balance issues] Objective:: Physical Exam General: Alert and oriented x3, no acute distress, pleasant and cooperative, [on room air] Lungs: Resps E/U, Symmetrical chest expansion, Eyes: PERRL Musculoskeletal: Flexion and extension of lumbar spine somewhat guarded secondary to pain, deep tendon reflexes normal, strength in upper and lower extremities [5/5], [abnormal gait noted] Neurological: speech clear, recreation therapy aides teacher equal, no gross sensory deficits Assessment:: Degenerative disc disease lumbar spine lumbar radiculopathy, facet arthropathy, spinal stenosis with neurogenic claudication Plan:: We will schedule the patient for flexion and extension x-rays to see if he is appropriate candidate for overt a flex procedure. He is failed epidural injections, facet joint injections, medications, anti-inflammatories. Dr. jones will review his x-rays. I will follow-up with him after this reassess his symptoms at that time he has been instructed to call the office if he has any issues prior to his next appointment. He has had pain for over [address] Hebert has reviewed this note and agrees with this plan of care. This note was dictated using voice recognition software and may contain errors or omissions [facility] History I have reviewed the patient's past medical history: Yes Medical History: Reports:: Anxiety, Atherosclerotic Heart Disease, Cancer (BLADDER), Chronic Obstructive Pulmonary Disease (COPD), Coronary Artery Disease, Depression, Gastroesophageal Reflux Disease(GERD), Hyperlipidemia, Hypertension, Myocardial Infarction (X2) Denies:: Diabetes Mellitus Type 1, Diabetes Mellitus Type 2, MRSA *Have you ever received a pneumonia vaccine?: Yes *Have you received a flu vaccine this season?: Yes Other Medical History: Reports: Arthritis Laterality Cases: Left: Other Other Surgeries: Yes: No Previous Surgery, Colonoscopy, Colostomy, Coronary Stent, Other Amputation: No Fractures: No - *Social History Smoking Status: Current every day smoker Tobacco Type: cigarettes # Packs/Day (cigarettes): 1 #Yrs smoked (if former smoker): 30 Alcohol Intake: former Alcohol Intake Frequency:: 3 or more drinks per day Substance Use Type: painkillers *Occupational Status:: other Housing: house Household Members: other *Travel in the last 8 weeks: No
== END ==
LOC: SC.PAIN 11:21 → RAD 12:11
PROVIDERS: PCP Internal Medicine Adolescent Medicine; Visit Provider Clinical Nurse Specialist Family Health
DX: M54.5 Low back pain (principal)
CPT/HCPCS: 72120; 99212

== ENCOUNTER → 2020-03-12 10:19 | Outpatient (CLI) | payer OTHER, SELFPAY ==
--- NOTE | 2020-03-12 10:33 | XR_ITS ---
PROCEDURE: XR LUMBAR SPINE 2-3V CLINICAL INDICATION: BACKPAIN COMPARISON: XR LUMBAR SPINE BENDING ONLY from 03/03/2020 FINDINGS: Mild lumbar scoliosis convex right. There is mild wedging of T12 and L1 not significantly changed. Mild degenerative disc disease present at L 4 L5. There is a transitional segment at the lumbosacral junction consistent with partial lumbarization of S1. Mild osteoarthritic changes are present of the hips.. IMPRESSION: Degenerative changes with chronic mild wedging of T12 and L1. No acute finding Dictated by: Juve Padilla MD 03/12/2020 14:51 Electronically signed by Juve Padilla MD in [place] 03/12/2020 14:51
== END ==
PROVIDERS: PCP Internal Medicine Adolescent Medicine; Visit Provider Anesthesiology
DX: M54.5 Low back pain (principal)
CPT/HCPCS: 72100

== ENCOUNTER → 2020-04-01 06:23 | Outpatient (CLI) | payer OTHER, SELFPAY ==
--- NOTE | 2020-04-01 06:24 | CA_ITS ---
APPROVED REPORT EXAM: Comprehensive 2D, Doppler, and color-flow Echocardiogram Employee Wellness/Fitness Coordinator: Herminia Davison RDCS Ht: 5 ft 7 in Wt: 124lbs BSA: 1.65 BP: 133/88 mmHg Indications: CAD,HTN,HLP,SMOKER 2D Dimensions LVOT 1.87 cm (M/F) 1.5-2.5 M-Mode Dimensions RVDd 2.18 cm (0.9-2.6) LVDd 5.67 cm (3.5-5.7) LVDs 3.95 cm (3.5-5.7) IVSd 0.61 cm (0.6-1.1) PWd 0.58 cm (0.6-1.1) EF (Teich) 57.10% FS 30.30% EDV (Teich) 158.10 mL ESV (Teich) 67.90 mL LV Diastology E/A Ratio 1.20 Mitral Valve MV A Velocity 78.00 (40-130 cm/s) Left Ventricle Left atrium is mildly enlarged, left ventricle is normal size, mild concentric left ventricular hypertrophy, visually estimated ejection fraction 55% with no regional wall motion abnormality, grade 1 diastolic dysfunction seen without tissue Doppler evidence of raise left atrial pressure. Right Ventricle Right atrium is mildly enlarged, right ventricle is mildly dilated with normal contractility. Aortic Valve Aortic valve is minimally thickened and fibrosed, there is no aortic stenosis or aortic insufficiency. Mitral Valve Mitral valve is grossly normal, there is mild mitral regurgitation. Tricuspid Valve Tricuspid valve is grossly normal, there is mild tricuspid regurgitation, calculated right ventricular systolic pressure is 43 mmHg. Pulmonic Valve Pulmonic valve is poorly visualized. Great Vessels Aortic root is normal size. Pericardium No significant pericardial effusion noted. Conclusion 1. Mild biatrial enlargement, normal left ventricular size, mild concentric left ventricular hypertrophy, visually estimated ejection fraction of 55% with no regional wall motion abnormality, grade 1 diastolic dysfunction seen without tissue Doppler evidence of raise left atrial pressure. 2. Mild mitral and tricuspid regurgitation, calculated right ventricular systolic pressure is 43 mmHg. 3. No significant pericardial effusion noted. Electronically signed by : Jordy Hyman, 04/01/2020 18:32:38
--- NOTE | 2020-04-01 06:29 | CA_ITS ---
APPROVED REPORT Exam: Pharmacologic Technologist: Jammie Snell Ht: 5 ft 7 in Wt: 124 lbs BSA: 1.65 m2 HR: 80 bpm BP: 127/90 mmHg Indications: CAD, preop clearance Medical History Medications: Alprazolam,,,,, Isosorbide,,,,, Aspirin,,,,, Metoprolol,,,,, Hydrocodone,,,,, Pantoprazole,,,,, Atorvastatin,,,,, TopIRAMATE,,,,, TAMSULOSIN,,,,, Albuterol,,,,, Famotidine,,,,, DulOXETINE,,,,, Stress Test Details Test: LEXISCAN HR Resting HR: 81 bpm Max Heart Rate (APMHR): 164 bpm Max HR Achieved: 93 bpm Target HR (85% APMHR): 139 bpm % of APMHR: 56 Recovery HR: 86 bpm BP Resting BP: 127.0/90.0 mmHg Max BP: 130.0/84.0 mmHg Recovery BP: 116.0/83.0 mmHg ECG Clinical Exercise duration: 04:00 min Highest Stage Achieved: Exercise capacity: 1.0 METs Stress ECG Conclusion Resting ECG: Normal sinus rhythm Symptoms: Brief shortness of air and chest pain, mild malaise Arrhythmias/Ectopy: None ST-T Changes: No significant changes. Conclusion: Unremarkable Lexiscan stress. Myoview images reported separately. Electronically signed by : Jordy Hyman, 04/01/2020 18:21:50
--- NOTE | 2020-04-01 06:29 | NM_ITS ---
APPROVED REPORT Exam: Nuclear Stress Test Indication: CAD, High cholesterol, Tobacco use, Family history, Pre op Patient Location: Outpatient Stress Tech: Jammietessa Snell NM Tech:Jessica Montano, ARRT, RT (R)(N) Ht: 5 ft 7 in Wt: 124 lbs HR: 80 bpm BP: 127/90 mmHg BSA: 1.65 m2 BMI: 19.4 History: CAD, High cholesterol, Tobacco use, Family history, Pre op Procedure: Patient received a 0.4 mg of intravenous Lexiscan, resting heart rate 80 bpm, resting blood pressure 127/90 mmHg, with Lexiscan maximum heart rate achived was 89 bpm which is Less than 85 % of the maximum predicted heart rate and blood pressure was 130/84 mmHg. Electrocardiogram Resting electrocardiogram showed sinus rhythm, with Lexiscan there is less than 1.[address] segment depression noted from the baseline EKG. The EKG portion of the Lexiscan Myoview is nondiagnostic. Cardiac Stress and Resting SPECT Images: Cardiac Stress and Resting SPECT images were obtained using technetium 99m Myoview 32.7 mCi stress and 10.39 mCi at rest. Gated SPECT for analysis of segmental wall motion and calculation of the ejection fraction also done. Cardiac stress and resting SPECT images show a fixed defect in the inferior wall which is likely secondary to prior nontransmural myocardial scarring, computer derived ejection fraction is 50% with moderate inferior wall hypokinesis, right ventricle is normal size and contractility. Conclusion: 1. The EKG portion of the Lexiscan Myoview is nondiagnostic. 2. Scintigraphic evidence of nontransmural myocardial scarring involving the inferior wall without significant jose de jesus-infarct ischemia, computer derived ejection fraction is 50% with segmental wall motion abnormality described above, right ventricle is normal size and contractility. 3. Abnormal Lexiscan Myoview study. Electronically signed by : Jordy Hyman, 04/01/2020 18:24:25
--- NOTE | 2020-04-01 08:38 | HMH.ITSHM ---
Current Home Medications as stated by this patient Amado De Oliveira or telephone claims representative. []TOPIRAMAT ASA AMITRIPTYLINE DULOXETINE CYCLOBANZAPRINE STOOL SOFTNER ATORVASTATIN ALBUTEROL
== END ==
PROVIDERS: PCP Internal Medicine Adolescent Medicine; Visit Provider Urology
DX: Z01.810 Encounter for preprocedural cardiovascular examination (principal); E78.49 Other hyperlipidemia; I11.9 Hypertensive heart disease without heart failure; I25.118 Atherosclerotic heart disease of native coronary artery with other forms of angina pectoris; Z72.0 Tobacco use; Z95.5 Presence of coronary angioplasty implant and graft
CPT/HCPCS: 78452; 93017; 93306; A9502; J2785

== ENCOUNTER → 2020-04-16 11:40 | Outpatient (CLI) | payer OTHER, SELFPAY ==
--- NOTE | 2020-04-16 11:46 | XR_ITS ---
PROCEDURE: XR CHEST 2V CLINICAL HISTORY: ACUTE BRONCHITIS, UNSPEC. ORGANISM, EXPOSURE TO LUO VIRUS COMPARISON: CR CXR1 CHEST-PORTABLE from 06/24/2017 CR CXR1VP XR chest portable from 09/22/2017 CR CXR2V XR chest 2V from 09/28/2017 CR CXR2V XR chest 2V from 10/30/2018 FINDINGS: The cardiomediastinal silhouette and pulmonary vascularity are within normal limits. There is patchy infiltrate in the left lower lobe. There is mild hyperinflation with attenuation of the peripheral pulmonary vessels consistent with small airway disease/COPD. No acute bony abnormalities. IMPRESSION: Left lower lobe pneumonia Dictated b Juve Padilla MD 04/16/2020 13:40 Juve Padilla MD in [place] 04/16/2020 13:40
[2020-04-16 12:30] LABS: Adenovirus,PCR Not Detected (NotDetected); Bordetella Pertussis Not Detected (NotDetected); Chlamydophila Pneumoniae, PCR Not Detected (NotDetected); Coronavirus 229E Not Detected (NotDetected); Coronavirus NL63 Not Detected (NotDetected); Coronavirus OC43 Not Detected (NotDetected); Coronovirus HKU1,PCR Not Detected (NotDetected); Human Metapneumovirus Not Detected (NotDetected); Influenza A, PCR Not Detected (NotDetected); Influenza AH1, 2009 Not Detected (NotDetected); Influenza AH1, PCR Not Detected (NotDetected); Influenza AH3,PCR Not Detected (NotDetected); Influenza B, PCR Not Detected (NotDetected); Mycoplasma Pneumoniae, PCR Not Detected (NotDetected); Parainfluenza 1, PCR Not Detected (NotDetected); Parainfluenza 2, PCR Not Detected (NotDetected); Parainfluenza 3, PCR Not Detected (NotDetected); Parainfluenza 4, PCR Not Detected (NotDetected); Respiratory Syncytial Virus Not Detected (NotDetected); Rhinovirus/Enterovirus Not Detected (NotDetected)
[2020-04-16 12:45] LABS: Basophils # 0.1 K/mm3 (0-0.2); Basophils % 0.5 % (0.1-2.0); Eosinophils # 0.2 K/mm3 (0.0-0.4); Eosinophils % 1.7 % (0.1-12.0); Hemoglobin 12.9 g/dL (14.1-18.0); Lymphocytes # 2.2 K/mm3 (0.7-4.5); Lymphocytes % 19.8 % (10-50); Mean Corpuscular HGB Conc 33.1 g/dL (31.8-35.4); Mean Corpuscular Hemoglobin 30.9 pg (27.0-31.2); Mean Corpuscular Volume 93.3 fl (80-94); Mean Platelet Volume 7.3 fl (7.4-10.4); Monocytes # 0.7 K/mm3 (0.1-1.0); Monocytes % 6.5 % (1.7-9.3); Neutrophils % 71.6 % (37.0-80.0); Platelet Count 445 K/mm3 (142-424); Red Blood Count 4.18 M/mm3 (4.60-6.20); White Blood Count 11.2 K/mm3 (4.8-10.8)
[2020-04-16 12:50] LABS: Chloride 103 mmol/L (98-107); Sodium 138 mmol/L (136-145)
[2020-04-16 12:51] LABS: Potassium 4.7 mmoL/L (3.5-5.1)
[2020-04-16 12:53] LABS: Alanine Aminotransferase 10 U/L (12-78); Albumin Level 3.9 g/dl (3.5-5.0); Albumin/Globulin Ratio 1.1 (1.1-1.8); Alkaline Phosphatase 68 U/L (38-126); Anion Gap 12.7 mEq/L (5-15); Aspartate Amino Transferase 16 U/L (17-59); Bilirubin,Total 0.5 mg/dl (0.2-1.3); Blood Urea Nitrogen 15 mg/dl (9-20); Carbon Dioxide 27 mmol/L (22.0-30.0); Estimated Glomerular Filt Rate 87 ml/min (>60); GFR (African American) 106 ML/MIN (>60); Globulin 3.4 g/dL (1.3-3.2); Total Protein,Serum 7.3 g/dl (6.3-8.2)
[2020-04-16 12:54] LABS: Calcium 9.5 mg/dl (8.4-10.2); Glucose 105 mg/dl (74-100)
== END ==
PROVIDERS: PCP Internal Medicine Adolescent Medicine; Visit Provider Internal Medicine Adolescent Medicine
DX: Z20.828 Contact with and (suspected) exposure to other viral communicable diseases (principal); J20.9 Acute bronchitis, unspecified
CPT/HCPCS: 36415; 71046; 80053; 85025; 87486; 87581; 87633; 87798; U0003